=== PATIENT | male | born 1945 | race Caucasian/White ===

== ENCOUNTER 2017-12-03 17:17 | Inpatient (IN) ==
[2017-12-03] MEDS ORDERED: Naloxone 0.4 MG/ML INJ IVP PRN (20:31)
[2017-12-03] MEDS ORDERED: traMADol 50 MG TABLET PO PRN (20:31)
[2017-12-03] MEDS ORDERED: Acetaminophen 325 MG TABLET PO PRN (20:31)
[2017-12-03 22:22] LABS: BUN/Creatinine Ratio 16 (6-26); Blood Urea Nitrogen 9 mg/dL (8-23); Calcium 8.1 mg/dL (8.6-10.3); Carbon Dioxide 24 mEq/L (23-29); Chloride 88 mEq/L (98-107); Glucose 98 mg/dL (70-105); Osmolality,Calculated 245 (280-300); Potassium 3.6 mEq/L (3.5-5.1); Sodium 118 mEq/L (136-145); eGFR For Non-African Americans > 60 (> 60)
--- NOTE | 2017-12-03 23:17 | Internal Med History&Physical ---
Date of Encounter: 12/04/17 Time of Encounter: 19:45 Internal Medicine - H&P: HPI Chief complaint: Near syncope Admitted From: Emergency Dept Plans for Post Hospital Care: Home History of present illness: Mr. Elizondo is a 72 year old male with history of hypertension, [place] status post stents 4 years ago, hip fracture 1 year ago, looking back 3 years ago and recent diagnosis of right lower lobe lung nodule who presented to the ED with 3 day history of near syncopal events. He says that earlier this afternoon he was outside spraying weeds in his yard and he became intensely diaphoretic, lightheaded, nauseated and felt like he was going throughout. He immediately felt that he might pass out, and found that he needed to sit down very quickly. He did not pass out, because he was able to sit down in time, however he did continue to feel increasingly dizzier and had some confusion associated with this. He denies any chest pain associated with at that time and did not have any shortness of breath associated with it either. At that time, EMS was called and when they arrived he apparently had a systolic blood pressure of approximately 80 with a heart rate in the low 40s. He does say that he recovered relatively quickly however. Patient states that this happened to him on Monday as well while he was at work. 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 It did resolve on its own last time. He was brought to the emergency room, at which time he was given a small fluid bolus and his symptoms largely resolved. The patient denies chest pains, shortness of breath, abdominal pain, headache, she will changes, focal weakness, bleeding, melena or hematochezia. He does admit to some nausea and one episode of vomiting on Monday. Significantly upon further questioning regarding medical history, the patient reveals that he is recently been worked up for hyponatremia which has been going on for approximately 3 weeks. He had apparently gone to his primary care physician for what he describes as fatigue over the past 2 months and a 10 pound weight loss over the past 3 weeks. He relates that the 10 pound weight loss is due to a change in taste of food which decreased his appetite after he started lisinopril. The patient has been on hydrochlorothiazide for a significant amount of time for hypertension and recently switched to lisinopril due to hyponatremia which was found on workup in late October, however he says that he switch back to hydrochlorothiazide from lisinopril approximately 3 days ago. In addition of this, the patient did have a CT of his chest which demonstrated a right lower lobe lung nodule which was being worked up in the outpatient setting and he was scheduled to have a PET/CT scan on this coming Monday followed by a consultation with pulmonology. Social history is significant for a 35-61-eeip-year smoking history and he is a current smoker with 3-4 cigarettes per day. He denies any alcohol use, denies illicit drug use. He is and lives at home. Works as a building construction superintendent. The patient and his travel to [place] each year in March and then moved back to [place] and September to avoid the cold weather. Past Med Surg Social Fam HX - Past Medical History Medical history: hypertension, myocardial infarction Psychiatric history: no psych history - Past Surgical History Additional surgical history: LEFT FOOT SX, LEFT HIP FX - Social History Smoking Status: Current some day smoker Packs per day: 1 cig/ day Smokeless Tobacco Status: No Alcohol use: none Drug use: none Internal Medicine - H&P: Meds Aspirin [Lo-Dose Aspirin EC] 162 mg PO DAILY 12/03/17 [History] Flaxseed Oil [[place]-3 Flaxseed Oil] 1 cap PO DAILY 12/03/17 [History] Folic Acid [FA-8] 0.8 mg PO DAILY 12/03/17 [History] Garlic 1,000 mg PO DAILY 12/03/17 [History] [place]-3 Fatty Acids [Fish Oil Concentrate] 1,000 mg PO DAILY 12/03/17 [History] hydroCHLOROthiazide [Hydrochlorothiazide] 25 mg PO DAILY 12/03/17 [History] 3 Allergy/AdvReac Type Severity Reaction Status Date / Time Cmludzt-Rex-Qdo Reductase Allergy See Verified 12/03/17 16:07 Inhibitor Comments [Statins] All Systems PM: A 10-system review of systems was performed and is negative for pertinent findings except as documented above in the HPI. Review of systems: Constitutional: Denies fevers, chills. Admits to generalized fatigue over the past 2-3 months, 10 pound weight loss in 3 weeks Head/Neck: Denies ROBERTS, neck stiffness EENT: Denies vision changes/blurriness, sore throat. Admits to sinus congestion which is chronic CVS: Denies chest pain, palpitations, HERNANDEZ, orthopnea, edema, PND. Admits to marked diaphoresis Pulm: Denies SOB, hemoptysis, wheezing. Admits to increased cough with sputum production GI: Denies abdominal pain, diarrhea, constipation, melena, hematemasis. Admits to nausea and vomiting only during episodes : Denies dysuria, increased frequency, urgency, hematuria. Heme: Denies ease of bleeding or bruising MSK: Denies joint pain, limited ROM Skin: Denies rashes, ulcers, color changes Neuro: Denies ROBERTS, paresthesias, focal deficits, ataxia. Admits to near syncope , dizziness, confusion during about - Constitutional Vitals: Temp Pulse Resp BP Pulse Ox 98.9 F 57 19 147/78 98 12/03/17 18:55 12/03/17 18:55 12/03/17 18:55 12/03/17 18:55 12/03/17 18:55 Exam: Gen: Vitals noted. No acute distress. HEENT: Normocephalic, atraumatic Neck: Supple. No adenopathy. Cardiac: RRR, no murmur, +S1/S2 Pulmonary: CTA bilaterally, no wheezes, rales or rhonchi, equal chest expansion Abdomen: soft, nontender, no guarding Back: Nontender throughout. MSK: ROM intact, no joint swelling noted Extremities: no BLE edema, nontender calf, no cyanosis or clubbing Neuro: moves all extremities, no focal deficits. A&Ox3 Psych: Appropriate mood and behavior Internal Med - H&P Results - Labs CBC & Chem 7: 12/03/17 20:49 Labs: BMP 12/03/17 20:49 Sodium 118 L* Potassium 3.6 Chloride 88 L Carbon Dioxide 24 BUN 9 Creatinine 0.58 L Glucose 98 Calcium 8.1 L - Assessment and plan (1) Hyponatremia Current Visit: Yes Status: Acute Assessment and plan: Severe hyponatremia, asymptomatic. Sodium 117, Serum Osm 247, Urine I suspect that this is SIADH in response to lung nodule found on CT, however diuretic use vs heart failure remains on differential Appears to be chronic, however there may be an acute aspect considering restarting HCTZ 3 days ago He is currently asymptomatic although his near syncope and confusion may have been related earlier The patient does appear to be euvolemic, he has hypoosmolar and does not admit to polydipsia The patient does have a substantial smoking history Plan -Fluid restrict now, hold HCTZ -Normal saline at 125mLs/hr, Na q2h -AM Cortisol -Echo in AM -Consider nephro consult (2) Near syncope Current Visit: Yes Status: Acute Assessment and plan: Near syncope, suspect urinary to volume depletion versus vasovagal response On arrival, EMS noted hypotension with bradycardia This is most commonly seen and vasovagal responses Still I will work this up for possible arrhythmia versus heart failure given other symptoms Plan -Echo in the morning -Bilateral carotid ultrasound -Trend troponins -Continuous cardiac monitoring -Consider cardiology consultation (3) Bradycardia Current Visit: Yes Status: Acute Assessment and plan: Sinus bradycardia No evidence of coronary ischemia Possibly increased vagal tone We will continue to trend troponins Consider cardiology consultation (4) HTN (hypertension) Current Visit: Yes Status: Acute Assessment and plan: Hypertension Previously treated with hydrochlorothiazide and lisinopril The patient has had adverse effects as result of both these medications Hydrochlorothiazide is contraindicated in this patient secondary to his issues with electrolytes at this time Otherwise, the patient has not been able to tolerate lisinopril in the past I will hold both of these medications at this time I will give when necessary hydralazine, and calcium channel araceli if needed Qualifiers: Hypertension type: essential hypertension Qualified Code(s): I10 - Essential (primary) hypertension (5) Lung nodule Current Visit: Yes Status: Acute Assessment and plan: Right lung nodule demonstrated on CT, 1.1cm Patient intended to have PET CT on Monday as outpatient Pulmonology considered outpatient bronchoscopy with biopsy We will consider a pulmonology consult (6) CAD (coronary artery disease) Current Visit: No Status: Chronic Assessment and plan: Coronary artery disease, status post stents approximately 4 years ago Patient is currently not having chest pains, however he did have diaphoresis We will trend troponins Continue aspirin Qualifiers: Coronary Disease-Associated Artery/Lesion type: [place] artery [place] vs. transplanted heart: [place] heart Associated angina: without angina Qualified Code(s): I25.10 - Atherosclerotic heart disease of [place] coronary artery without angina pectoris (7) DVT prophylaxis Current Visit: Yes Status: Acute Assessment and plan: SQ Heparin - Time Spent With Patient Total time spent is greater than 50% in coordination of care (as documented) at patient's floor/unit and/or counseling patient:
[2017-12-04 01:06] LABS: Bilirubin,Urine Negative (Negative); Blood,Urine Negative (Negative); Clarity,Urine Clear (Clear); Color,Urine Yellow (Yellow); Glucose,Urine (UA) Normal (Normal); Ketones,Urine 15 mg/dL (Negative); Leukocyte Esterase,Urine Negative (Negative); Nitrite,Urine Negative (Negative); Protein,Urine Negative (Neg-Trace); Specific Gravity,Urine 1.015 (1.010-1.025); Urobilinogen,Urine Normal (Normal)
[2017-12-04 01:13] LABS: Sodium, Urine 170.2 mEq/L
[2017-12-04] MEDS ORDERED: 0.9 % Sodium Chloride 1,000 ML IVC SCH ×2 (01:30→09:45)
[2017-12-04] MEDS: *HR* Heparin 5,000 UNIT/ML VIAL SQ SCH ×3 (04:44→21:18)
[2017-12-04] MEDS ORDERED: Cosyntropin 250 MCG/2 ML VIAL IVP ONE (07:30)
[2017-12-04] MEDS: Aspirin Enteric Coated 81 MG Tablet PO SCH (08:16)
[2017-12-04] MEDS ORDERED: Folic Acid 1 MG TABLET PO SCH (09:45)
--- NOTE | 2017-12-04 10:00 | Internal Med Progress Note ---
Hospitalist Progress Note - Encounter Date of Encounter: 12/04/17 Time of Encounter: 09:57 - Subjective Interval History: Patient had no acute events overnight. He states that he feels "better" today. He denies fever, chills, dizziness, headache, chest pain, SOB, nausea, vomiting, or abdominal pain. He has no complaints at this time. - Exam Vitals: Temp Pulse Resp BP Pulse Ox 97.9 F 55 18 124/96 95 12/04/17 07:41 12/04/17 08:25 12/04/17 07:41 12/04/17 07:41 12/04/17 08:25 Exam: Gen - Awake, alert, no acute distress HEENT - NCAT, PERRLA, EOMI, hearing grossly intact, oropharynx benign CV - RRR, normal S1 and S2, no M/R/G, no BLE edema Resp - Normal WOB, CTAB, no W/R/R GI - Soft, NT/ND, no masses, normal bowel sounds, no HSP Skin - Warm, dry, no rashes/lesions/ulcers Psych - Normal mood and affect, no depression or anxiety - Assessment and Plan (1) Near syncope Current Visit: Yes Status: Acute Assessment and Plan: Asymptomatic since admission. ECHO and carotid U/S pending. Cardiac enzymes trended negative. Continue telemetry. BP now improved; continue IVF as per below. Consider cardiology consult if needed pending workup. (2) Hyponatremia Current Visit: Yes Status: Acute Assessment and Plan: Nephrology consulted; appreciate input. Start IV NS at 75 ml/hr. Check sodium Q4H. Do not correct more than 8 in 24 hours. Continue to hold HCTZ. Start cardiac/fluid restriction 1.5 L/day diet. Cortisol results pending. Will await further recommendations from nephrology. (3) Hypomagnesemia Current Visit: Yes Status: Acute Assessment and Plan: Repleted yesterday. Recheck magnesium today. (4) Bradycardia Current Visit: Yes Status: Acute Assessment and Plan: Sinus bradycardia. HR slightly improved. Cardiac enzymes trended negative. Continue telemetry. (5) HTN (hypertension) Current Visit: Yes Status: Chronic Assessment and Plan: Holding lisinopril and HCTZ. Continue PRN hydralazine. Consider starting ARB after BP improves. (6) Lung nodule Current Visit: Yes Status: Chronic Assessment and Plan: Spoke with cell geneticist today. Recommend keeping outpatient appointments for PET scan and bronchoscopy. (7) CAD (coronary artery disease) Current Visit: Yes Status: Chronic Assessment and Plan: Cardiac enzymes trended negative. No chest pain. Continue aspirin. Holding lisinopril at this time as per above; consider starting ARB after BP improves. (8) DVT prophylaxis Current Visit: Yes Status: Acute Assessment and Plan: Continue SQ heparin. - Time Spent with Patient Total time spent is greater than 50% in coordination of care (as documented) at patient's floor/unit and/or counseling patient: less than 15 minutes Plan of Care Discussed with: patient (Family, Nurse, Pharmacist) Internal Medicine: Result - Labs CBC & Chem 7: 12/04/17 03:39 Labs: BMP 12/03/17 12/04/17 12/04/17 20:49 01:38 03:39 Sodium 118 L* 117 L* 118 L* Potassium 3.6 Chloride 88 L Carbon Dioxide 24 BUN 9 Creatinine 0.58 L Glucose 98 Calcium 8.1 L Cardiac Enzymes 12/04/17 12/04/17 Range/Units 01:38 08:41 Troponin I < 0.03 < 0.03 (< 0.04) ng/mL Urine 12/03/17 Range/Units 23:42 Urine Color Yellow (Yellow) Urine Clarity Clear (Clear) Urine pH 7.0 (5.0-8.0) pH Units Ur Specific Griffith 1.015 (1.010-1.025) Urine Protein Negative (Neg-Trace) mg/dL Urine Glucose (UA) Normal (Normal) mg/dL Consult Discharge Plan - Plan Referrals: Evan Dominguez MD [Primary Care Provider] - 12/11/17 2:00 pm (5) HTN (hypertension) Qualifiers: Hypertension type: essential hypertension Qualified Code(s): I10 - Essential (primary) hypertension (7) CAD (coronary artery disease) Qualifiers: Coronary Disease-Associated Artery/Lesion type: [place] artery [place] vs. transplanted heart: [place] heart Associated angina: without angina Qualified Code(s): I25.10 - Atherosclerotic heart disease of [place] coronary artery without angina pectoris
[2017-12-04] MEDS: FLAXSEED OIL PO SCH (10:09)
[2017-12-04] MEDS: FATTY ACIDS PO SCH (10:09)
[2017-12-04] MEDS: OMEGA PO SCH (10:09)
[2017-12-04] MEDS: Garlic [Garlic] 1,000 MG PO SCH (10:09)
[2017-12-04] MEDS: Folic Acid 1 MG TABLET PO SCH (10:09)
[2017-12-04 10:29] LABS: Magnesium 2.1 mg/dL (1.6-2.6); Triiodothyronine (T3) Free 2.86 pg/mL (2.50-3.90)
--- NOTE | 2017-12-04 11:31 | Nephrology Consult Note ---
<Jose Quintero - Last Filed: 12/04/17 14:44> Date of Encounter: 12/04/17 Time of Encounter: 11:20 Assessment and Plan (1) Hyponatremia Current Visit: Yes Status: Acute Calculated serum osm = 245, Measured osm = 285. Osmolar gap = 40, significant. Patient does not have an anion gap acidosis. Likely cause of hyponatremia 2/2 to chronic hydrochlorothiazide use. Will discontinue now. Patient had adverse effects with lisinopril, could consider losartan if BP uncontrolled. BP has been stable, reasonable to continue holding BP meds and start medication as needed. Continue Na+ monitor Q4 hours. Other causes of increased osmolar gap includes methanol/ethylene glycol intoxication, mannitol/sorbitol, lipids, or proteins. Will order lipid panel, uric acid. Consider serum ethanol measurements. Patient's BP has increased and is stable. d/c fluids and start fluid restriction and sodium containing diet. Avoid nephrotoxins. Nephrology will continue following. Thank you for the consult. History of Present Illness - Reason for Consult Consult date: 12/04/17 Acute Kidney Injury, hyponatremia Requesting physician: Pravin Atkinson - Chief Complaint Near Syncope - History of Present Illness 72M PMHx HTN, CAD with stent, presents with episode of near syncope. Patient is a contractor and works outdoors often. He reports that he has had 2 episodes of near syncope in the last few weeks, each time occurring when he was working outdoors. Denies head injury or loss of consciousness. Patient's last blood work at [facility] demonstrated hyponatremia of 127 and was instructed to discontinue hydrochlrothiazide and switch to lisinopril. However, since then, patient had trial of lisinopril for 3 days and experienced worsening PO intake due to "everything tasting like salt", and restarted his hydrochlorothiazide himself. He has been on thiazide for 4 years without complications. Today, he reports that he feels "much better". No complaints of dizziness or lightheadedness. Does have some nausea but no vomiting. He was able to void without difficulty. Does not have memory loss, headaches, or vision changes. Denies CP, SOB, abdominal pain. His cooks for him at home with minimal to no salt. He has also had poor PO intake for several weeks. Denies alcohol, methanol, or ethylene glycol consumption. Denies mannitol or sorbital comsumption. Past Med Surg Social Fam HX - Past Medical History Medical history: hypertension, myocardial infarction Psychiatric history: no psych history - Past Surgical History Additional surgical history: LEFT FOOT SX, LEFT HIP FX - Social History Smoking Status: Current some day smoker Packs per day: 1 cig/ day Smokeless Tobacco Status: No Alcohol use: none Drug use: none Medications and Allergies Aspirin [Lo-Dose Aspirin EC] 162 mg PO DAILY 12/03/17 [History] Flaxseed Oil [[place]-3 Flaxseed Oil] 1 cap PO DAILY 12/03/17 [History] Folic Acid [FA-8] 0.8 mg PO DAILY 12/03/17 [History] Garlic 1,000 mg PO DAILY 12/03/17 [History] [place]-3 Fatty Acids [Fish Oil Concentrate] 1,000 mg PO DAILY 12/03/17 [History] Lisinopril [Zestril] 10 mg PO DAILY 12/04/17 [History] 3 Allergy/AdvReac Type Severity Reaction Status Date / Time Qtancts-Zak-Kjo Reductase Allergy See Verified 12/03/17 16:07 Inhibitor Comments [Statins] Review of Systems All Systems: reviewed and no additional remarkable complaints except as stated All Systems review (narrative): Constitutional: Denies fevers, chills. Admits to generalized fatigue over the past 2-3 months, 10 pound weight loss in 3 weeks Head/Neck: Denies ROBERTS, neck stiffness EENT: Denies vision changes/blurriness, sore throat. CVS: Denies chest pain, palpitations, HERNANDEZ, orthopnea, edema, PND. Pulm: Denies SOB, hemoptysis, wheezing. Admits to increased cough with sputum production GI: Denies abdominal pain, diarrhea, constipation, melena, hematemasis. Admits to nausea and vomiting only during episodes : Denies dysuria, increased frequency, urgency, hematuria. Heme: Denies ease of bleeding or bruising MSK: Denies joint pain, limited ROM Skin: Denies rashes, ulcers, color changes Neuro: Denies ROBERTS, paresthesias, focal deficits, ataxia. Admits to near syncope , dizziness, confusion during episodes Exam - Vital Signs Vital signs: Initial Vital Signs Temp Pulse Resp BP Pulse Ox 98.9 F 57 19 147/78 98 12/03/17 18:55 12/03/17 18:55 12/03/17 18:55 12/03/17 18:55 12/03/17 18:55 Vital Signs - Last 8 Hours Temp Pulse Resp BP Pulse Ox 12/04/17 08:25 55 95 12/04/17 07:41 97.9 F 56 18 124/96 96 12/04/17 04:15 98.1 F 56 19 148/65 96 Intake and Output 12/03/17 12/04/17 12/04/17 23:59 07:59 15:59 Intake Total 446 / 446 0 / 0 Output Total 725 / 725 0 / 0 Balance -279 / -279 0 / 0 Intake: IV Fluids 446 / 446 0.9 % Sodium Chloride 1,000 ML 342 / 342 @ 125 mls/hr IVC .Q8H AC Rx#: [id number] Magnesium Sulfate 2 GM In 0.9 % 104 / 104 Sodium Chloride 100 ML @ 104 mls/hr IVPB ONCE ONE Rx#: [id number] Oral 0 / 0 Output: Urine 725 / 725 0 / 0 Other: Meal Breakfast Percent of Meal Consumed 0% Weight 76.6 kg 75.7 kg Blood Glucose* 101 Patient Weight 12/04/17 23:59 Weight 75.7 kg - General Appearance Exam: Gen: Vitals noted. No acute distress. HEENT: Normocephalic, atraumatic Neck: Supple. No adenopathy. Cardiac: RRR, no murmur, +S1/S2 Pulmonary: CTA bilaterally, no wheezes, rales or rhonchi, equal chest expansion Abdomen: soft, nontender, no guarding Back: Nontender throughout. MSK: ROM intact, no joint swelling noted Extremities: no BLE edema, nontender calf, no cyanosis or clubbing Neuro: moves all extremities, no focal deficits. A&Ox3 Psych: Appropriate mood and behavior Results - Lab Results 12/04/17 13:02 Most recent lab results Calcium 8.1 mg/dL (8.6-10.3) L 12/03/17 20:49 Magnesium 2.1 mg/dL (1.6-2.6) 12/04/17 09:10 Urine Creatinine 41 mg/dL 12/03/17 23:42 Urine Sodium 170.2 mEq/L 12/03/17 23:42 Consult Discharge Plan - Plan Referrals: Evan Dominguez MD [Primary Care Provider] - 12/11/17 2:00 pm <Chelsea Sweeney - Last Filed: 12/05/17 09:42> Date of Encounter: 12/04/17 Exam - Vital Signs Vital signs: Initial Vital Signs Temp Pulse Resp BP Pulse Ox 98.9 F 57 19 147/78 98 12/03/17 18:55 12/03/17 18:55 12/03/17 18:55 12/03/17 18:55 12/03/17 18:55 Vital Signs - Last 8 Hours Temp Pulse Resp BP Pulse Ox 12/05/17 07:26 98.2 F 51 18 150/84 93 12/05/17 04:00 97.8 F 59 20 160/73 99 Intake and Output 12/04/17 12/05/17 12/05/17 23:59 07:59 15:59 Intake Total 719 / 719 240 / 240 Output Total 200 / 200 900 / 900 Balance 519 / 519 -900 / -900 240 / 240 Intake: IV Fluids 329 / 329 0.9 % Sodium Chloride 1,000 ML 329 / 329 @ 75 mls/hr IVC .[id number] AC Rx #:[id number] Oral 390 / 390 240 / 240 Output: Urine 200 / 200 900 / 900 Other: Meal Dinner Breakfast Percent of Meal Consumed 80% 50% # Voids 1 Weight 72.8 kg Blood Glucose* 122 Patient Weight 12/05/17 23:59 Weight 72.8 kg Results - Lab Results 12/05/17 05:22 12/05/17 05:22 Most recent lab results Calcium 8.4 mg/dL (8.6-10.3) L 12/05/17 05:22 Magnesium 2.1 mg/dL (1.6-2.6) 12/04/17 09:10 Urine Creatinine 41 mg/dL 12/03/17 23:42 Urine Sodium 170.2 mEq/L 12/03/17 23:42 - Attending Attestation I examined this patient and my medical decision-making was reviewed with the Resident Physician. I agree with the documented findings, disposition and treatment plan as described except to the extent set forth below. Pt seen and examined with PMH of HTN on HCTZ till recent changes admitted with generalized fatigue and noted with sodium of 117. Last month sodium was noted low for the first time at 125 with HCTZ changed to lisinopril however pt switched back as lisinopril did not control his BP readings.Pt reports all day work outside the day prior to admission with BP readings down to 80/40s on presentation. Of note, pt is also being worked up for a 1.1cm pulm nodule discovered on recent CT chest given smoking history. Exam shows well nourished elderly male with no signs of edema. Etiology of acute on chronic mildly symptomatic hyponatremia appears to be initial volume depletion with hypotension now volume resuscitated but likley underlying SIADH as well given high urine osmolality and urine sodium level. Of note, measured serum osm noted at 245 and calculated 247 hence no osmolal gap noted. Will stop IVF and start fluid restriction. Will add more sodium to diet as well as salt tabs. Will check uric acid level as well. Continue sreial sodium checks in the meantime. Hypertonic saline not required at this time but will consider tolvaptan if no measurable improvement in the next 24 to 48hrs.
[2017-12-04 13:50] LABS: Chol/HDL Ratio 2.9 (0-4.9); Cholesterol 174 mg/dL (< 200); HDL Cholesterol 60 mg/dL (40-59); LDL Cholesterol,Calculated 94 mg/dL (0-99); Sodium 118 mEq/L (136-145); Triglycerides 100 mg/dL (< 150); Uric Acid < 1.5 mg/dL (2.3-7.6)
[2017-12-05 05:59] LABS: BUN/Creatinine Ratio 16 (6-26); Blood Urea Nitrogen 9 mg/dL (8-23); Calcium 8.4 mg/dL (8.6-10.3); Carbon Dioxide 25 mEq/L (23-29); Chloride 88 mEq/L (98-107); Glucose 97 mg/dL (70-105); Osmolality,Calculated 247 (280-300); Potassium 3.2 mEq/L (3.5-5.1); Sodium 119 mEq/L (136-145); eGFR For Non-African Americans > 60 (> 60)
[2017-12-05 06:17] LABS: Basophils % 0.6 %; Eosinophils # 0.2 K/mcL (0.0-0.6); Eosinophils % 3.5 %; Hemoglobin 12.5 g/dL (12.9-16.9); Immature Granulocytes % 0.2 % (0-4); Lymphocytes # 1.8 K/mcL (0.6-4.6); Mean Corpuscular HGB Conc 36.8 g/dL (31.6-35.5); Mean Corpuscular Hemoglobin 31.5 pg (28.0-33.3); Mean Corpuscular Volume 85.6 fL (83.0-100.0); Mean Platelet Volume 9.4 fL (9.4-12.4); Monocytes # 0.7 K/mcL (0.0-1.3); Monocytes % 11.2 %; Neutrophils # 3.7 K/mcL (1.6-8.9); Platelet Count 219 K/mcL (140-400); Red Blood Count 3.97 M/mcL (4.19-5.50); Red Cell Distribution Width 11.3 % (11.5-14.5); Segmented Neutrophils % 56.5 %
[2017-12-05] MEDS: FLAXSEED OIL PO SCH (08:23)
[2017-12-05] MEDS: FATTY ACIDS PO SCH (08:23)
[2017-12-05] MEDS: OMEGA PO SCH (08:23)
[2017-12-05] MEDS: Garlic [Garlic] 1,000 MG PO SCH (08:23)
[2017-12-05] MEDS: Folic Acid 1 MG TABLET PO SCH (08:24)
[2017-12-05] MEDS: Aspirin Enteric Coated 81 MG Tablet PO SCH (08:24)
[2017-12-05] MEDS: *HR* Heparin 5,000 UNIT/ML VIAL SQ SCH ×2 (08:24→15:42)
[2017-12-05 12:09] LABS: BUN/Creatinine Ratio 13 (6-26); Blood Urea Nitrogen 9 mg/dL (8-23); Calcium 8.9 mg/dL (8.6-10.3); Carbon Dioxide 26 mEq/L (23-29); Chloride 87 mEq/L (98-107); Glucose 116 mg/dL (70-105); Osmolality,Calculated 250 (280-300); Potassium 3.3 mEq/L (3.5-5.1); Sodium 120 mEq/L (136-145); eGFR For Non-African Americans > 60 (> 60)
--- NOTE | 2017-12-05 12:26 | Nephrology Progress Note ---
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 Per nurse, losartan started by primary team this am. Objective - Vital Signs Vital signs: Vital Signs Temp Pulse Resp BP Pulse Ox 12/05/17 11:41 98.8 F 51 18 125/73 96 12/05/17 07:26 98.2 F 51 18 150/84 93 12/05/17 04:00 97.8 F 59 20 160/73 99 12/05/17 00:09 97.8 F 56 17 142/60 96 12/04/17 18:57 98.1 F 54 18 141/69 96 12/04/17 15:57 52 12/04/17 15:28 98.3 F 56 18 136/73 96 12/04/17 12:30 71 Intake and Output 12/04/17 12/05/17 12/05/17 23:59 07:59 15:59 Intake Total 719 / 719 240 / 240 Output Total 200 / 200 900 / 900 Balance 519 / 519 -900 / -900 240 / 240 Intake: IV Fluids 329 / 329 0.9 % Sodium Chloride 1,000 ML 329 / 329 @ 75 mls/hr IVC .[id number] AC Rx #:[id number] Oral 390 / 390 240 / 240 Output: Urine 200 / 200 900 / 900 Other: Meal Dinner Breakfast Percent of Meal Consumed 80% 50% # Voids 1 Weight 72.8 kg Blood Glucose* 122 Patient Weight 12/05/17 23:59 Weight 72.8 kg - General Appearance General appearance: Present: well-developed, well-nourished EENT: Present: ATNC, mucous membranes moist Neck: Present: no JVD, supple Respiratory: Present: clear Cardiology: Present: no edema, normal S1, normal S2 Gastrointestinal: Present: no tenderness, no guarding Integumentary: Present: warm and dry Neurologic: Present: no focal deficit Musculoskeletal: Present: no deformities Psychiatric: Present: mood/affect appropriate, cooperative - Lab 12/05/17 05:22 12/05/17 11:24 Most recent lab results Calcium 8.9 mg/dL (8.6-10.3) 12/05/17 11:24 Magnesium 2.1 mg/dL (1.6-2.6) 12/04/17 09:10 Urine Creatinine 41 mg/dL 12/03/17 23:42 Urine Sodium 170.2 mEq/L 12/03/17 23:42 - VTE Documentation of Mechanical Device: Intermittent pneumatic compression device Consult Discharge Plan - Plan Referrals: Evan Dominguez MD [Primary Care Provider] - 12/11/17 2:00 pm
[2017-12-05 17:26] LABS: BUN/Creatinine Ratio 16 (6-26); Blood Urea Nitrogen 10 mg/dL (8-23); Carbon Dioxide 26 mEq/L (23-29); Chloride 89 mEq/L (98-107); Glucose 100 mg/dL (70-105); Osmolality,Calculated 249 (280-300); Potassium 4.1 mEq/L (3.5-5.1); Sodium 120 mEq/L (136-145); eGFR For Non-African Americans > 60 (> 60)
--- NOTE | 2017-12-05 18:40 | Internal Med Progress Note ---
Hospitalist Progress Note - Encounter Date of Encounter: 12/05/17 Time of Encounter: 11:00 - Subjective Interval History: Patient is alert and oriented this morning and sodium slowly correcting. Patient's blood pressure is elevated so will be started on blood pressure medication this morning. - Exam Vitals: Temp Pulse Resp BP Pulse Ox 98.9 F 54 18 156/78 97 12/05/17 16:17 12/05/17 16:17 12/05/17 16:17 12/05/17 16:17 12/05/17 16:17 Exam: Gen.: Nonacute distress, alert and oriented 3 ENT: Mucosal membranes moist Respiratory: Lungs are clear to auscultation bilaterally without any wheezing rhonchi or rales Cardiovascular: Normal S1 and S2 regular rate rhythm no murmurs rubs or gallops Abdomen: Soft, nontender and nondistended with positive bowel sounds Extremities: No lower extremity edema Skin: Normal color - Assessment and Plan (1) Hyponatremia Current Visit: Yes Status: Acute Assessment and Plan: Nephrology consulted with recommendations to discontinue normal saline and salt tablets was started this morning. SrNa 118->118->120 Will continue to monitor (2) Hypokalemia Current Visit: Yes Status: Acute Assessment and Plan: Potassium was 3.2 earlier this morning but after replacements is currently 4.1 Continue to monitor (3) Near syncope Current Visit: Yes Status: Acute Assessment and Plan: Asymptomatic since admission. ECHO and carotid U/S negative. Continue telemetry. (4) HTN (hypertension) Current Visit: Yes Status: Chronic Assessment and Plan: Patient with continued elevated blood pressures. Holding lisinopril and HCTZ. Will start losartan due to elevated blood pressures. (5) Lung nodule Current Visit: Yes Status: Chronic Assessment and Plan: Patient to keep outpatient appointments for PET scan and bronchoscopy. (6) CAD (coronary artery disease) Current Visit: Yes Status: Chronic Assessment and Plan: Continue aspirin. Starting ARB as above. (7) Bradycardia Current Visit: Yes Status: Acute Assessment and Plan: Sinus bradycardia; heart rate consistently in the 50s Continue to monitor on telemetry (8) DVT prophylaxis Current Visit: Yes Status: Acute Assessment and Plan: Continue SQ heparin. - Time Spent with Patient Total time spent is greater than 50% in coordination of care (as documented) at patient's floor/unit and/or counseling patient: Internal Medicine: Result - Labs CBC & Chem 7: 12/05/17 05:22 12/05/17 16:44 Labs: Short CBC 12/05/17 Range/Units 05:22 WBC 6.5 (4.3-11.1) K/mcL Hgb 12.5 L (12.9-16.9) g/dL Hct 34.0 L (37.5-50.1) % Plt Count 219 (140-400) K/mcL Neutrophils # 3.7 (1.6-8.9) K/mcL BMP 12/04/17 12/05/17 12/05/17 21:09 01:40 05:22 Sodium 118 L* 118 L* 119 L* Potassium 3.2 L Chloride 88 L Carbon Dioxide 25 BUN 9 Creatinine 0.56 L Glucose 97 Calcium 8.4 L 12/05/17 12/05/17 11:24 16:44 Sodium 120 L* 120 L* Potassium 3.3 L 4.1 Chloride 87 L 89 L Carbon Dioxide 26 26 BUN 9 10 Creatinine 0.68 L 0.64 L Glucose 116 H 100 Calcium 8.9 9.0 - VTE Documentation of Mechanical Device: Intermittent pneumatic compression device Consult Discharge Plan - Plan Referrals: Evan Dominguez MD [Primary Care Provider] - 12/11/17 2:00 pm (4) HTN (hypertension) Qualifiers: Hypertension type: essential hypertension Qualified Code(s): I10 - Essential (primary) hypertension (6) CAD (coronary artery disease) Qualifiers: Coronary Disease-Associated Artery/Lesion type: [place] artery [place] vs. transplanted heart: [place] heart Associated angina: without angina Qualified Code(s): I25.10 - Atherosclerotic heart disease of [place] coronary artery without angina pectoris
[2017-12-05 23:27] LABS: BUN/Creatinine Ratio 17 (6-26); Blood Urea Nitrogen 9 mg/dL (8-23); Calcium 8.7 mg/dL (8.6-10.3); Carbon Dioxide 24 mEq/L (23-29); Chloride 90 mEq/L (98-107); Glucose 95 mg/dL (70-105); Osmolality,Calculated 248 (280-300); Potassium 3.5 mEq/L (3.5-5.1); Sodium 120 mEq/L (136-145); eGFR For Non-African Americans > 60 (> 60)
[2017-12-06] MEDS: *HR* Heparin 5,000 UNIT/ML VIAL SQ SCH ×4 (05:15→20:46)
[2017-12-06 05:56] LABS: BUN/Creatinine Ratio 15 (6-26); Blood Urea Nitrogen 8 mg/dL (8-23); Calcium 8.7 mg/dL (8.6-10.3); Carbon Dioxide 23 mEq/L (23-29); Chloride 91 mEq/L (98-107); Glucose 100 mg/dL (70-105); Osmolality,Calculated 250 (280-300); Potassium 3.6 mEq/L (3.5-5.1); Sodium 121 mEq/L (136-145); eGFR For Non-African Americans > 60 (> 60)
[2017-12-06] MEDS: Aspirin Enteric Coated 81 MG Tablet PO SCH (08:26)
[2017-12-06] MEDS: Folic Acid 1 MG TABLET PO SCH (08:26)
--- NOTE | 2017-12-06 09:19 | Nephrology Progress Note ---
<Jose Quintero - Last Filed: 12/06/17 11:03> Date of Encounter: 12/06/17 Time of Encounter: 09:00 - Assessment and Plan (1) Hyponatremia Status: Acute Sodium noted at 121 this AM despite fluid restriction and salt tabs Uric acid noted very low, which is consistent with SIADH picture Trial of one dose Tolvaptan 15mg PO now. continue salt tabs, fluid restriction, and serial sodium checks today Continue liberalized sodium in diet Patient is on losartan for BP. Continue to hold hydrochlorothiazide indefinitely (2) Near syncope Current Visit: Yes Status: Acute (3) Lung nodule Current Visit: Yes Status: Chronic Possible SIADH. Will follow up with pulmonology for PET scan once patient stabilizes. (4) HTN (hypertension) Current Visit: Yes Status: Chronic Continue with Losartan. Qualifiers: Hypertension type: essential hypertension Qualified Code(s): I10 - Essential (primary) hypertension Subjective Principal diagnosis: hyponatremia Interval history: Patient is doing well today. He is voiding without difficulty. Denies blurry vision, confusion, headaches, nausea, vomiting, diarrhea, CP, SOB. He does not have any acute complaints. Objective - Vital Signs Vital signs: Vital Signs Temp Pulse Resp BP Pulse Ox 12/06/17 08:19 53 97 12/06/17 06:54 97.6 F 75 16 144/71 97 12/06/17 03:33 97.8 F 58 17 153/78 100 12/05/17 23:42 97.6 F 56 18 157/71 97 12/05/17 19:01 97.9 F 54 19 172/79 12/05/17 16:17 98.9 F 54 18 156/78 97 12/05/17 11:41 98.8 F 51 18 125/73 96 Intake and Output 12/05/17 12/06/17 12/06/17 23:59 07:59 15:59 Intake Total 360 / 360 240 / 240 Output Total 700 / 700 0 / 0 Balance -340 / -340 240 / 240 Intake: Oral 360 / 360 240 / 240 Output: Urine 700 / 700 0 / 0 Other: Meal Dinner Breakfast Percent of Meal Consumed 50% 25% Weight 71.9 kg Patient Weight 12/06/17 23:59 Weight 71.9 kg - General Appearance Exam: Gen.: Nonacute distress, alert and oriented 3 ENT: Mucosal membranes dry Respiratory: Lungs are clear to auscultation bilaterally without any wheezing rhonchi or rales Cardiovascular: Normal S1 and S2 regular rate rhythm no murmurs rubs or gallops Abdomen: Soft, nontender and nondistended with positive bowel sounds Extremities: No lower extremity edema Skin: Normal color - Lab 12/05/17 05:22 12/06/17 05:11 Most recent lab results Calcium 8.7 mg/dL (8.6-10.3) 12/06/17 05:11 Magnesium 2.1 mg/dL (1.6-2.6) 12/04/17 09:10 Urine Creatinine 41 mg/dL 12/03/17 23:42 Urine Sodium 170.2 mEq/L 12/03/17 23:42 - VTE Documentation of Mechanical Device: Intermittent pneumatic compression device Consult Discharge Plan - Plan Instructions: Losartan (By mouth), Sodium Chloride (By mouth), Dehydration (DC) , Hyponatremia (DC), Chronic Hypertension (DC) Referrals: Clary Vaz MD [Partnered Physician] - 12/14/17 10:30 am (Please arrive 15 minutes early for your appointment. Take with you INS.cards, Photo ID, a list of all medications including over the counter) Chelsea Sweeney MD [Partnered Physician] - 01/02/18 11:00 am Evan Dominguez MD [Primary Care Provider] - 12/11/17 2:00 pm Prescriptions: Losartan [Cozaar] 50 mg PO DAILY #60 tablet Sodium Chloride [Sodium Chloride Tab] 1 gm PO BID #60 tablet <Chelsea Sweeney - Last Filed: 12/15/17 12:38> Date of Encounter: 12/06/17 - Assessment and Plan (1) Hyponatremia Status: Acute (2) Near syncope Status: Acute (3) Lung nodule Status: Chronic (4) HTN (hypertension) Status: Chronic Qualifiers: Hypertension type: essential hypertension Qualified Code(s): I10 - Essential (primary) hypertension Objective - Lab 12/05/17 05:22 12/07/17 04:22 Most recent lab results Calcium 9.3 mg/dL (8.6-10.3) 12/07/17 04:22 Magnesium 2.1 mg/dL (1.6-2.6) 12/04/17 09:10 Urine Creatinine 41 mg/dL 12/03/17 23:42 Urine Sodium 170.2 mEq/L 12/03/17 23:42 - Attending Attestation I examined this patient and my medical decision-making was reviewed with the Resident Physician/[employer]. I agree with the documented findings, disposition and treatment plan as described except to the extent set forth below. Pt seen and examined with no complaints. Sodium noted at 121 on salt tabs and fluid restriction. Exam unremarkable. Will add tolavaptan 15mg once today.
[2017-12-06] MEDS ORDERED: Tolvaptan 15 MG TABLET PO ONE (09:41)
[2017-12-06 11:44] LABS: BUN/Creatinine Ratio 16 (6-26); Blood Urea Nitrogen 10 mg/dL (8-23); Calcium 9.2 mg/dL (8.6-10.3); Carbon Dioxide 26 mEq/L (23-29); Chloride 90 mEq/L (98-107); Glucose 111 mg/dL (70-105); Osmolality,Calculated 254 (280-300); Sodium 122 mEq/L (136-145); eGFR For Non-African Americans > 60 (> 60)
[2017-12-06 17:09] LABS: BUN/Creatinine Ratio 12 (6-26); Blood Urea Nitrogen 9 mg/dL (8-23); Calcium 9.5 mg/dL (8.6-10.3); Carbon Dioxide 28 mEq/L (23-29); Chloride 98 mEq/L (98-107); Glucose 104 mg/dL (70-105); Osmolality,Calculated 255 (280-300); Sodium 123 mEq/L (136-145); eGFR For Non-African Americans > 60 (> 60)
--- NOTE | 2017-12-06 18:54 | Internal Med Progress Note ---
Hospitalist Progress Note - Encounter Date of Encounter: 12/06/17 Time of Encounter: 11:00 - Subjective Interval History: Patient is alert and oriented and sodium continues to correct slowly - Exam Vitals: Temp Pulse Resp BP Pulse Ox 97.5 F L 57 16 146/73 98 12/06/17 16:51 12/06/17 18:35 12/06/17 16:51 12/06/17 18:35 12/06/17 16:51 Exam: Gen.: Nonacute distress, alert and oriented 3 ENT: Mucosal membranes moist Respiratory: Lungs are clear to auscultation bilaterally without any wheezing rhonchi or rales Cardiovascular: Normal S1 and S2 regular rate rhythm no murmurs rubs or gallops Abdomen: Soft, nontender and nondistended with positive bowel sounds Extremities: No lower extremity edema Skin: Normal color - Assessment and Plan (1) Hyponatremia Current Visit: Yes Status: Acute Assessment and Plan: Nephrology consulted with recommendations to start her out dose of Tolvaptan and continue salt tablets . SrNa 118->118->120->121->121->123 Will continue to monitor (2) Hypokalemia Current Visit: Yes Status: Acute Assessment and Plan: Potassium was 3.2 earlier this morning but after replacements is currently 4.1 Continue to monitor (3) Near syncope Current Visit: Yes Status: Acute Assessment and Plan: Asymptomatic since admission. ECHO and carotid U/S negative. Continue telemetry. (4) HTN (hypertension) Current Visit: Yes Status: Chronic Assessment and Plan: Patient with continued elevated blood pressures. Holding lisinopril and HCTZ. Will start losartan due to elevated blood pressures. (5) Lung nodule Current Visit: Yes Status: Chronic Assessment and Plan: Patient to keep outpatient appointments for PET scan and bronchoscopy. (6) CAD (coronary artery disease) Current Visit: Yes Status: Chronic Assessment and Plan: Continue aspirin. Starting ARB as above. (7) Bradycardia Current Visit: Yes Status: Acute Assessment and Plan: Sinus bradycardia; heart rate consistently in the 50s Continue to monitor on telemetry (8) DVT prophylaxis Current Visit: Yes Status: Acute Assessment and Plan: Continue SQ heparin. - Time Spent with Patient Total time spent is greater than 50% in coordination of care (as documented) at patient's floor/unit and/or counseling patient: Internal Medicine: Result - Labs CBC & Chem 7: 12/05/17 05:22 12/06/17 16:37 Labs: BMP 12/05/17 12/06/17 12/06/17 22:42 05:11 11:05 Sodium 120 L* 121 L 122 L Potassium 3.5 3.6 4.0 Chloride 90 L 91 L 90 L Carbon Dioxide 24 23 26 BUN 9 8 10 Creatinine 0.53 L 0.52 L 0.63 L Glucose 95 100 111 H Calcium 8.7 8.7 9.2 12/06/17 16:37 Sodium 123 L Potassium 4.0 Chloride 98 Carbon Dioxide 28 BUN 9 Creatinine 0.74 Glucose 104 Calcium 9.5 - VTE Documentation of Mechanical Device: Intermittent pneumatic compression device Consult Discharge Plan - Plan Referrals: Evan Dominguez MD [Primary Care Provider] - 12/11/17 2:00 pm (4) HTN (hypertension) Qualifiers: Hypertension type: essential hypertension Qualified Code(s): I10 - Essential (primary) hypertension (6) CAD (coronary artery disease) Qualifiers: Coronary Disease-Associated Artery/Lesion type: [place] artery [place] vs. transplanted heart: [place] heart Associated angina: without angina Qualified Code(s): I25.10 - Atherosclerotic heart disease of [place] coronary artery without angina pectoris
[2017-12-07 05:38] LABS: BUN/Creatinine Ratio 12 (6-26); Blood Urea Nitrogen 8 mg/dL (8-23); Calcium 9.3 mg/dL (8.6-10.3); Carbon Dioxide 24 mEq/L (23-29); Chloride 101 mEq/L (98-107); Glucose 101 mg/dL (70-105); Osmolality,Calculated 272 (280-300); Sodium 132 mEq/L (136-145); eGFR For Non-African Americans > 60 (> 60)
[2017-12-07] MEDS: Aspirin Enteric Coated 81 MG Tablet PO SCH (07:48)
[2017-12-07] MEDS: Folic Acid 1 MG TABLET PO SCH (07:48)
[2017-12-07] MEDS: *HR* Heparin 5,000 UNIT/ML VIAL SQ SCH (07:49)
--- NOTE | 2017-12-07 11:10 | Nephrology Progress Note ---
<Jose Quintero - Last Filed: 12/07/17 19:05> Date of Encounter: 12/07/17 Time of Encounter: 11:00 - Assessment and Plan (1) Hyponatremia Status: Acute serum sodium has improved from 121 to 132 in the last 11 hours with 1 dose tolvaptan 15mg PO yesterday morning. This is marginally more elevated that preferred but patient is doing well and asymptomatic. We would prefer to keep patient here for one more day to assure he stays asymptomatic and recheck his sodium tomorrow morning, but patient is adamant on being discharged today. His serum sodium has improved and close to baseline. He is also asymptomatic. Will discharge today at patient's request. He understands the risks of untreated hyponatremia. He is advised to present to ED immediately if he experiences severe headaches, dizziness, or confusion. He is also advised to continue with fluid restriction of 1.5L daily and sodium tablets diet. We will also hold hydrochlorothiazide indefinitely. Dispo: Patient is to have his BMP rechecked 1 week after discharge and follow-up with nephrology in 2 weeks. His clinical picture is suggestive of SIADH, likely source from pulmonary nodule. He also has follow-up with pulmonology for PET scan. Script for BMP for 12/14/17 was provided for him. (2) Near syncope Current Visit: Yes Status: Acute (3) Lung nodule Current Visit: Yes Status: Chronic Patient's picture consistent with SIADH. Will follow up with pulmonology for PET scan once patient stabilizes. (4) HTN (hypertension) Current Visit: Yes Status: Chronic Continue with Losartan as needed. Treat per primary team Subjective Principal diagnosis: hyponatremia Interval history: Patient is doing well today. He is voiding without difficulty. Denies blurry vision, confusion, headaches, nausea, vomiting, diarrhea, CP, SOB. He does not have any acute complaints. He is adamant on being discharged today. Objective - Vital Signs Vital signs: Vital Signs Temp Pulse Resp BP Pulse Ox 12/07/17 07:50 97.7 F 61 18 139/80 96 12/07/17 07:12 97.7 F 61 18 139/80 96 12/07/17 04:41 98.2 F 53 18 158/80 95 12/06/17 23:18 98.5 F 52 20 145/67 96 12/06/17 19:29 97.9 F 58 17 152/74 99 12/06/17 18:35 57 146/73 12/06/17 16:51 97.5 F L 50 16 163/70 98 12/06/17 15:48 47 12/06/17 12:34 58 12/06/17 11:07 98.1 F 59 16 140/75 96 Intake and Output 12/06/17 12/07/17 12/07/17 23:59 07:59 15:59 Intake Total 940 / 940 300 / 300 Output Total 1425 / 1425 500 / 500 Balance -485 / -485 -200 / -200 Intake: Oral 940 / 940 300 / 300 Output: Urine 1425 / 1425 500 / 500 Other: Meal Dinner Percent of Meal Consumed 30% Weight 69.6 kg Patient Weight 12/07/17 23:59 Weight 69.6 kg - General Appearance General appearance: Present: well-developed, well-nourished, appears started age Exam: Gen.: Nonacute distress, alert and oriented 3 ENT: Mucosal membranes dry Respiratory: Lungs are clear to auscultation bilaterally without any wheezing rhonchi or rales Cardiovascular: Normal S1 and S2 regular rate rhythm no murmurs rubs or gallops Abdomen: Soft, nontender and nondistended with positive bowel sounds Extremities: No lower extremity edema Skin: Normal color Neck: Present: no JVD, no thyromegaly, no carotid bruit, supple Respiratory: Present: no kyphosis, no scoliosis Cardiology: Present: no murmurs, no rub, no gallops, no edema, regular rate, regular rhythm, normal S1, normal S2 Gastrointestinal: Present: normoactive bowel sounds, no tenderness Integumentary: Present: no rash, warm and dry Neurologic: Present: no focal deficit, no asterixis, alert and oriented x3, reflexes 2+ and symmetric, gait normal, strength 5/5 Musculoskeletal: Present: no deformities, no erythema, no cyanosis, no clubbing Psychiatric: Present: mood/affect appropriate, cooperative - Lab 12/05/17 05:22 12/07/17 04:22 Most recent lab results Calcium 9.3 mg/dL (8.6-10.3) 12/07/17 04:22 Magnesium 2.1 mg/dL (1.6-2.6) 12/04/17 09:10 Urine Creatinine 41 mg/dL 12/03/17 23:42 Urine Sodium 170.2 mEq/L 12/03/17 23:42 - VTE Documentation of Mechanical Device: Intermittent pneumatic compression device Consult Discharge Plan - Plan Instructions: Losartan (By mouth), Sodium Chloride (By mouth), Dehydration (DC) , Hyponatremia (DC), Chronic Hypertension (DC) Referrals: Clary Vaz MD [Partnered Physician] - 12/14/17 10:30 am (Please arrive 15 minutes early for your appointment. Take with you INS.cards, Photo ID, a list of all medications including over the counter) Chelsea Sweeney MD [Partnered Physician] - 01/02/18 11:00 am Evan Dominguez MD [Primary Care Provider] - 12/11/17 2:00 pm Prescriptions: Losartan [Cozaar] 50 mg PO DAILY #60 tablet Sodium Chloride [Sodium Chloride Tab] 1 gm PO BID #60 tablet <Chelsea Sweeney - Last Filed: 12/24/17 21:13> Date of Encounter: 12/07/17 - Assessment and Plan (1) Hyponatremia Status: Acute (2) Near syncope Status: Acute (3) Lung nodule Status: Chronic (4) HTN (hypertension) Status: Chronic Qualifiers: Hypertension type: essential hypertension Qualified Code(s): I10 - Essential (primary) hypertension Objective - Lab 12/05/17 05:22 12/07/17 04:22 Most recent lab results Calcium 9.3 mg/dL (8.6-10.3) 12/07/17 04:22 Magnesium 2.1 mg/dL (1.6-2.6) 12/04/17 09:10 Urine Creatinine 41 mg/dL 12/03/17 23:42 Urine Sodium 170.2 mEq/L 12/03/17 23:42 - Attending Attestation I examined this patient and my medical decision-making was reviewed with the Resident Physician/FERMENTOLOGIST. I agree with the documented findings, disposition and treatment plan as described except to the extent set forth below. Pt seen and examined with no new complaints. He is eager to go home. Exam unchanged from previous. Sodium responded greatly a single low dose tolvaptan with improvement from 121 to 132 slightly more than desired but asymptomatic. 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 Needs further workup of this. Continue fluid restriction and increased sodium in diet. If discharged as pt desires, will need BMP within a week and followup with pcp, possibly pulm and nephrology.
[2017-12-07 11:25] VITALS: BP 145/73
--- NOTE | 2017-12-07 13:21 | Discharge Summary ---
- NOTES TO OUTPATIENT PROVIDER Notes to Outpatient Provider: Follow up with pulmonology to monitor lung nodule and with nephrology to monitor sodium levels Date of Encounter: 12/07/17 Time of Encounter: 11:00 - Discharge Diagnosis (1) Hyponatremia Priority: Primary Status: Acute (2) Hypokalemia Priority: Secondary Status: Acute (3) Near syncope Priority: Primary Status: Acute (4) HTN (hypertension) Priority: Secondary Status: Chronic Qualifiers: Hypertension type: essential hypertension Qualified Code(s): I10 - Essential (primary) hypertension (5) Lung nodule Priority: Secondary Status: Chronic (6) CAD (coronary artery disease) Priority: Secondary Status: Chronic Qualifiers: Coronary Disease-Associated Artery/Lesion type: [place] artery [place] vs. transplanted heart: [place] heart Associated angina: without angina Qualified Code(s): I25.10 - Atherosclerotic heart disease of [place] coronary artery without angina pectoris (7) Bradycardia Priority: Secondary Status: Acute Hospital course: Patient is a 72-year-old male with past medical history significant for coronary arterial disease status post stents, hypertension and a smoker who presents to the ER on 12/04/17 due to near syncopal episode. Patient outside and is discharged brain weeks and became diaphoretic lightheaded and nauseated and felt like he was going to pass out. Patient quickly sat down however and never passed out. Patient was brought to the ER for further evaluation. The ER, patient was found to be hyponatremic also with sinus bradycardia so was admitted to the medical surgical floor for management of hyponatremia. The patients hospital stay, nephrology was consulted with recommendations to discontinue normal saline and start patient on salt tablets. Patient was also given a dose of Tolvaptan which corrected patients hyponatremia. Recommendations by nephrology to discontinue hydrochlorothiazide. Patients blood pressure was also controlled with losartan and will be discharged to follow-up with nephrology and pulmonology as an outpatient for monitoring of lung nodule and sodium levels. - Time Spent with Patient Total time spent providing and/or coordinating discharge services: - Discharge Medications Prescriptions: Losartan [Cozaar] 50 mg PO DAILY #60 tablet Sodium Chloride [Sodium Chloride Tab] 1 gm PO BID #60 tablet Home Medications: Aspirin [Lo-Dose Aspirin EC] 162 mg PO DAILY 12/03/17 [History] Flaxseed Oil [Horton-3 Flaxseed Oil] 1 cap PO DAILY 12/03/17 [History] Folic Acid [FA-8] 0.8 mg PO DAILY 12/03/17 [History] Garlic 1,000 mg PO DAILY 12/03/17 [History] Horton-3 Fatty Acids [Fish Oil Concentrate] 1,000 mg PO DAILY 12/03/17 [History] Losartan [Cozaar] 50 mg PO DAILY #60 tablet 12/07/17 [Rx] Sodium Chloride [Sodium Chloride Tab] 1 gm PO BID #60 tablet 12/07/17 [Rx] Allergies/Adverse Reactions: 3 Allergy/AdvReac Type Severity Reaction Status Date / Time Teazzgh-Wav-Pyk Reductase Allergy See Verified 12/03/17 16:07 Inhibitor Comments [Statins] Date of admission: 12/04/17 11:10 Primary care physician: Evan Dominguez MD Consults: 12/03/17 18:57 Consult to Nutrition [CONS] Routine Comment: Consulting Provider: NUTRITION Reason for Dietary Consult: Diet Education 12/04/17 09:34 Consult to Nephrology [CONS] Routine Consulting Provider: Kidney Jaimie/DAGO/WERO/CHRISTOPHER Reason for Consult: Hyponatremia Time Notified: 09:35 Call Completed: Yes - Constitutional Vitals: Temp Pulse Resp BP Pulse Ox 97.5 F L 62 18 145/73 99 12/07/17 11:23 12/07/17 11:23 12/07/17 11:23 12/07/17 11:23 12/07/17 11:23 - Patient Status Disposition: Home, Self-Care - Discharge Instructions Instructions: Losartan (By mouth), Sodium Chloride (By mouth), Dehydration (DC) , Hyponatremia (DC), Chronic Hypertension (DC) Follow Up With: Clary Vaz MD [Partnered Physician] - 12/14/17 10:30 am (Please arrive 15 minutes early for your appointment. Take with you INS.cards, Photo ID, a list of all medications including over the counter) Chelsea Sweeney MD [Partnered Physician] - 01/02/18 11:00 am Evan Dominguez MD [Primary Care Provider] - 12/11/17 2:00 pm - VTE Documentation of Mechanical Device: Intermittent pneumatic compression device
== END 2017-12-07 14:12 | disposition home or self-care (01) | DRG 645 ==
LOC: 2NNU → SUATTDRO 12-04 11:10
PROVIDERS: ADMIT Family Medicine; ATTEND Hospitalist

== ENCOUNTER 2018-10-10 09:25 | Inpatient (IN) ==
--- NOTE | 2018-10-10 15:57 | Internal Med History&Physical ---
Date of Encounter: 10/10/18 Time of Encounter: 15:57 Internal Medicine - H&P: HPI History of present illness: Mr. Elizondo is a 73 year old male with history of lung cancer with mets on chemotherapy, CAD presents as a transfer from [facility] due to weakness. Patient initially came to [place] ER at the request of his doctor when he was not able to get out of bed. He has had poor appetite for past several months with nausea and some diarrhea. He is on immunotherapy for lung cancer and treatment has been postponed because of these symptoms. Denies fevers, SOB, CP, palpitations, change in vision. Due to his debility he was monitored at [place] and treated for dehydration, hyponatremia, and weakness. He was given IV fluids, prior to transfer listed as +3.5 L total of fluid from all sources. 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 Sodium went from 132 on admission and gradually to 124 prior to arrival here. TSH was low and Free T4 was high but likely from immunotherapy, and hyperthyroidism was not significant enough to initiate treatment. He had some imaging done showing liver with expanding mets, mesenteric lymphadenoapthy. A CT of chest showed worsening mets and pneumonia. He was started on Levaquin and blood cultures were obtained. He was transferred here for Oncology evaluation. Oncology is aware of patient transfer. Family history reviewed and non-contributory. Past Med Surg Social Fam HX - Past Medical History Medical history: cancer, hypertension, myocardial infarction Additional medical history: SMALL CELL LUNG CA METS TO LIVER. SIADH, broken back- lower Psychiatric history: no psych history - Past Surgical History Surgical History: non-contributory Additional surgical history: LEFT FOOT SX, LEFT HIP FX, right 4th digit surgery - Social History Smoking Status: Former smoker Smokeless Tobacco Status: No Alcohol use: none Drug use: none - Family History Father Living Status: Age at : 56 Cause of : stomach/lung cancer Hx Family Cardiac Disorders: Yes Hx Family Respiratory Disorders: Yes Hx Family Cancer: Yes Internal Medicine - H&P: Meds Aspirin [Lo-Dose Aspirin EC] 81 mg PO DAILY 12/03/17 [History] Flaxseed Oil [[place]-3 Flaxseed Oil] 1 cap PO DAILY 12/03/17 [History] Folic Acid [FA-8] 0.8 mg PO DAILY 12/03/17 [History] Garlic 1,000 mg PO DAILY 12/03/17 [History] [place]-3 Fatty Acids [Fish Oil Concentrate] 1,000 mg PO DAILY 12/03/17 [History] Promethazine [Phenergan] 25 mg PO Q6HR PRN #30 tablet 12/26/17 [Rx] Albuterol Sulfate [Albuterol Inhaler] 1 puff IH Q4HR #1 hfa.aer.ad 01/17/18 [Rx] Cholecalciferol (D-3) [Vitamin D] 1,000 unit PO DAILY 02/27/18 [History] Magic Mouthwash [Magic Mouthwash BLM] 10 ml PO QID PRN #240 ml 07/13/18 [Rx] Dronabinol [Marinol] 5 mg PO BID 30 Days #60 capsule 08/13/18 [Rx] Lactulose 20 gm PO BID #1 bottle 09/14/18 [Rx] Sodium Bicarbonate 650 mg PO DAILY 10/06/18 [History] 0.9 % Sodium Chloride 100 ml IVC .Q10H ivbag 10/10/18 [Rx] Acetaminophen [Tylenol] 650 mg PO Q4HR PRN tablet 10/10/18 [Rx] Enoxaparin [Lovenox] 40 mg SQ 0600 syringe 10/10/18 [Rx] Levofloxacin 750 MG/150 ML [Levaquin Premix 750mg/150 mL] 750 mg IVPB DAILY #7 bag 10/10/18 [Rx] Losartan [Cozaar] 100 mg PO DAILY tablet 10/10/18 [Rx] Potassium Chloride 20 meq PO BID tab.er.prt 10/10/18 [Rx] Tamsulosin [Flomax] 0.8 mg PO HS capsule 10/10/18 [Rx] amLODIPine [Norvasc] 10 mg PO DAILY tablet 10/10/18 [Rx] hydrALAZINE [HydrALAZINE] 25 mg PO Q8HR tablet 10/10/18 [Rx] Allergy/AdvReac Type Severity Reaction Status Date / Time Anccpks-Cyv-Zck Reductase Allergy See Verified 09/14/18 09:27 Inhibitor Comments [Statins] All Systems PM: A 10-system review of systems was performed and is negative for pertinent findings except as documented above in the HPI. - Constitutional Constitutional: anorexia, fatigue, malaise, weakness, weight loss, no chills, no excessive sweating, no lethargy - EENT Eyes: no change in vision, no diplopia, no photophobia Nose, mouth and throat: no change in voice, no dysphagia, no odynophagia, no sore throat, no throat swelling - Cardiovascular Cardiovascular ROS IM: no chest pain - Respiratory Respiratory: no cough, no dyspnea, no hemoptysis - Gastrointestinal Gastrointestinal: nausea, no abdominal pain - Genitourinary Genitourinary ROS male: no difficulty urinating, no genital lesions - Integumentary Integumentary IM: sores (sacral) - Neurological Neurological ROS: weakness, no confusion - Psychiatric Psychiatric: no confusion - Endocrine Endocrine IM: no cold intolerance, no excessive sweating, no heat intolerance - Constitutional Vitals: Temp Pulse Resp BP Pulse Ox 96.8 F L 62 16 151/71 94 10/10/18 12:26 10/10/18 12:26 10/10/18 12:26 10/10/18 12:26 10/10/18 12:26 General appearance: Present: cachectic, A&O X 3, no acute distress Exam: . - Head Head exam: Present: atraumatic, normocephalic - Eye Eye exam: Present: PERRL, conjuntiva pink, sclera anicteric Pupils: Present: PERRL - ENT ENT exam: Present: normal external ear exam, normal oropharynx - Neck Neck exam general surgery: Present: supple, trachea midline. Absent: lymphadenopathy - Respiratory Respiratory exam: Present: decreased breath sounds. Absent: accessory muscle use, rales, rhonchi, wheezes - Cardiovascular Cardiovascular exam: Present: RRR, +S1, +S2. Absent: diastolic murmur, gallop, rubs, systolic murmur - GI/Abdominal GI/Abdominal exam: Present: normal bowel sounds, soft, no peritoneal signs. Absent: distended, tenderness - Extremities Exam Extremities exam: Present: warm, radial pulses palpable and symmetrical. Absen t: calf tenderness, cyanotic, pedal edema - Neurological Exam Neurological exam: Present: CN II-XII intact, oriented X3, no focal deficits. Absent: pronater drift, facial droop, speech deficit - Skin Skin exam: Present: dry Additional comments: stage I sacral decub ulcer present on admission - Assessment and Plan (1) Weakness Current Visit: No Status: Acute Assessment and plan: Multifactorial related to worsening metastatic lung cancer, poor PO, hyponatremia, deconditioning.. - Oncology consulted for evaluation. - Nutrition consult, Ensure TID WM - Suspect SIADH, will avoid IV fluids for right now since patient received 3.5 L prior to admission and sodium went from 132 to 124. - Consult Nephrology. - PT/OT evaluation. (2) 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 Current Visit: No Status: Acute Assessment and plan: Oncology consulted. (3) Right upper lobe pneumonia Current Visit: No Status: Acute Assessment and plan: Started on Levaquin at [place] Continue Levaquin MRSA screen Resp infectious panel Legionella and strep ag's Qualifiers: Pneumonia type: due to unspecified organism Qualified Code(s): J18.1 - Lobar pneumonia, unspecified organism (4) Severe protein-calorie malnutrition Current Visit: Yes Status: Acute Assessment and plan: Nutrition consult. (5) Decubitus ulcer of sacral region, stage 1 Current Visit: Yes Status: Acute (6) Dehydration Current Visit: No Status: Acute (7) HTN (hypertension) Current Visit: No Status: Acute Assessment and plan: Awaiting med rec Per notes, patient SBP got in 200s and noted got better with Hydralazine PO, Norvasc, Cozaar. We will restart these based on this report to avoid any acute hypertensive episodes. Qualifiers: Hypertension type: essential hypertension Qualified Code(s): I10 - Essential (primary) hypertension (8) Low TSH level Current Visit: No Status: Acute Assessment and plan: Free t4 seen to be high, but not in range for medications. Could be from acute illness, will follow-up. (9) Small cell lung cancer Current Visit: No Status: Acute (10) CAD (coronary artery disease) Current Visit: No Status: Chronic Assessment and plan: Med recs pending. Qualifiers: Coronary Disease-Associated Artery/Lesion type: [place] artery [place] vs. transplanted heart: [place] heart Associated angina: without angina Qualified Code(s): I25.10 - Atherosclerotic heart disease of [place] coronary artery without angina pectoris - Time Spent With Patient Total time spent is greater than 50% in coordination of care (as documented) at patient's floor/unit and/or counseling patient:
[2018-10-10] MEDS ORDERED: Naloxone 0.4 MG/ML INJ IVP PRN (16:30)
[2018-10-10] MEDS ORDERED: Ondansetron 4 MG/2 ML VIAL IVP PRN (16:30)
[2018-10-10] MEDS ORDERED: MOM Conc 10 ML UD.LIQ PO PRN (16:30)
[2018-10-10] MEDS ORDERED: Ipratropium/Albuterol Neb 3 ML IH PRN (16:39)
[2018-10-10] MEDS: *HR* Heparin 5,000 UNIT/ML VIAL SQ SCH (18:07)
[2018-10-10] MEDS: hydrALAZINE 25 MG TABLET PO SCH (23:53)
[2018-10-11] MEDS: *HR* Heparin 5,000 UNIT/ML VIAL SQ SCH ×2 (05:20→18:02)
[2018-10-11 05:55] LABS: Basophils % 0.1 %; Hematocrit 31.4 % (37.5-50.1); Hemoglobin 11.3 g/dL (12.9-16.9); Immature Granulocytes % 0.2 % (0-4); Lymphocytes # 0.5 K/mcL (0.6-4.6); Lymphocytes % 5.2 %; Mean Corpuscular Hemoglobin 31.3 pg (28.0-33.3); Mean Platelet Volume 9.5 fL (9.4-12.4); Monocytes # 0.9 K/mcL (0.0-1.3); Monocytes % 10.9 %; Neutrophils # 7.2 K/mcL (1.6-8.9); Platelet Count 167 K/mcL (140-400); Red Blood Count 3.61 M/mcL (4.19-5.50); Red Cell Distribution Width 11.8 % (11.5-14.5); Segmented Neutrophils % 83.6 %; White Blood Count 8.6 K/mcL (4.3-11.1)
[2018-10-11 06:02] LABS: INR 1.2; Prothrombin Time 13.3 Seconds (9.4-12.1)
[2018-10-11 06:16] LABS: BUN/Creatinine Ratio 24 (6-26); Blood Urea Nitrogen 10 mg/dL (8-23); Calcium 9.3 mg/dL (8.6-10.3); Carbon Dioxide 22 mEq/L (23-29); Chloride 92 mEq/L (98-107); Glucose 135 mg/dL (70-105); Magnesium 1.7 mg/dL (1.6-2.6); Osmolality,Calculated 265 (280-300); Potassium 3.3 mEq/L (3.5-5.1); Sodium 127 mEq/L (136-145); eGFR For African Americans > 60 (> 60); eGFR For Non-African Americans > 60 (> 60)
[2018-10-11] MEDS: levoFLOXacin 750 MG/150 ML 750 MG/150 ML BAG IVPB SCH (09:06)
[2018-10-11] MEDS: hydrALAZINE 25 MG TABLET PO SCH ×3 (09:06→23:51)
[2018-10-11] MEDS: amLODIPine 5 MG TABLET PO SCH (09:06)
[2018-10-11 09:23] LABS: Adenovirus Not Detected (Not Detect); Bordetella Pertussis Not Detected (Not Detect); Chlamydophila pneumoniae Not Detected (Not Detect); Coronavirus 229E Not Detected (Not Detect); Coronavirus HKU1 Not Detected (Not Detect); Coronavirus NL63 Not Detected (Not Detect); Coronavirus OC43 Not Detected (Not Detect); Human Metapneumovirus Not Detected (Not Detect); Human Rhinovirus/Enterovirus Not Detected (Not Detect); Influenza A Subtype 2009 H1 Not Detected (Not Detect); Influenza A Untypeable Not Detected (Not Detect); Influenza B Not Detected (Not Detect); Mycoplasma pneumoniae Not Detected (Not Detect); Parainfluenza Virus 1 Not Detected (Not Detect); Parainfluenza Virus 2 Not Detected (Not Detect); Parainfluenza Virus 3 Not Detected (Not Detect); Parainfluenza Virus 4 Not Detected (Not Detect); Respiratory Syncytial Virus Not Detected (Not Detect)
[2018-10-11 11:03] LABS: Triiodothyronine (T3) Free 5.43 pg/mL (2.50-3.90); Triiodothyronine (T3) Total 1.29 ng/mL (0.87-1.78)
--- NOTE | 2018-10-11 11:12 | Oncology Inp Consult Note ---
<Jigar Sabillon - Last Filed: 10/11/18 13:47> Date of Encounter: 10/11/18 - Data of Consult Requesting Physician: Jill Gongora Primary Care Provider: Evan Dominguez MD Medications and Allergies Aspirin [Lo-Dose Aspirin EC] 81 mg PO DAILY 12/03/17 [History] Flaxseed Oil [[place]-3 Flaxseed Oil] 1 cap PO DAILY 12/03/17 [History] Folic Acid [FA-8] 0.8 mg PO DAILY 12/03/17 [History] Garlic 1,000 mg PO DAILY 12/03/17 [History] [place]-3 Fatty Acids [Fish Oil Concentrate] 1,000 mg PO DAILY 12/03/17 [History] Cholecalciferol (D-3) [Vitamin D] 1,000 unit PO DAILY 02/27/18 [History] Sodium Bicarbonate 650 mg PO DAILY 10/06/18 [History] Acetaminophen [Tylenol] 650 mg PO Q4HR PRN tablet 10/10/18 [Rx] Losartan [Cozaar] 100 mg PO DAILY tablet 10/10/18 [Rx] Potassium Chloride 20 meq PO BID tab.er.prt 10/10/18 [Rx] Tamsulosin [Flomax] 0.8 mg PO HS capsule 10/10/18 [Rx] amLODIPine [Norvasc] 10 mg PO DAILY tablet 10/10/18 [Rx] hydrALAZINE [HydrALAZINE] 25 mg PO Q8HR tablet 10/10/18 [Rx] Lactulose 30 ml PO BID PRN 10/11/18 [History] Vitamin E Acid Succinate [Vitamin E] 400 units PO DAILY 10/11/18 [History] Allergy/AdvReac Type Severity Reaction Status Date / Time Xtklyvj-Hdr-Lbu Reductase Allergy See Verified 09/14/18 09:27 Inhibitor Comments [Statins] Consult Discharge Plan - Plan Referrals: Evan Dominguez MD [Primary Care Provider] - Inpatient Charges Provider: Dr. Tena Sabillon Consult - Inpatient Medicare Only: [id number] - Attending Attestation I examined this patient and my medical decision-making was reviewed with the Advanced Practice Nurse. I agree with the documented findings, disposition and treatment plan as described except to the extent set forth below. -The patient is a 73 yo WM w/h/o extensive stage SCLC now p/w fatigue, weakness, RUL PNA, and hyponatremia. -Currently on Levaquin for his PNA and being fluid restricted for treatment of his SIADH -We will continue to follow along with you. Thanks for the consult! <Jo Ann Mary - Last Filed: 10/11/18 17:05> Date of Encounter: 10/11/18 Time of Encounter: 11:11 Assessment and Plan (1) Small cell lung cancer Status: Acute Assessment and plan: . Metastatic small cell carcinoma of the left lung. He has a centrally located left lung mass with associated hilar and mediastinal adenopathy. In addition, he has disease involving his liver and possibly spine. 2. SIADH Prior therapy: 1. Carboplatin with etoposidex 6 cycles 12/27/2017-04/13/2019 (does use by 25% secondary to fatigue) 2. Consolidative chest radiation completed 07/09/2018 3. Palliative WBRT completed 06/12/2018 Current therapy: 1. Ipilimumab with nivolumab initiated 08/23/2018 C3 10/05/18 held and patient and given IVF's. C2 09/14/18 Plan: Treatment decisions deferred to primary oncologist, Dr. Pabon. (2) Severe protein-calorie malnutrition Status: Acute Assessment and plan: Poor by mouth intake Plan: Referral to dietitian Daily weights (3) Hyponatremia Status: Acute Assessment and plan: Sodium 127 today History of SIADH Plan: Nephrology consult, recommendations appreciated (4) Weakness Status: Acute Assessment and plan: Progressive weakness. Patient denies changes or improvement in weakness today. Plan: PT/OT evaluation - Data of Consult Patient: known to practice within the last 3 years Requesting Physician: Jill Gongora Primary Care Provider: Evan Dominguez MD - Consult Narrative Reason for consult: metastatic small cell to the left lung History of present illness: Eb Elizondo is a 73 yo male being treated by Dr. Pabon at [facility] for metastatic small cell carcinoma of the left lung. He last received Yervoy (ipilimumab) and Opdivo (nivolumab) on 09/14/18. His treatment on 10/05/18 was held due to dehydration. He had progressive weakness and unable to get out of bed after and called EMS for assistance. He was admitted to [facility] for hydration. After 3.5L of IVF's, patient sodium level dropped from 132 to 124. He was transferred to [facility] for further management. Oncology history: 1. Metastatic small cell carcinoma of the left lung. He has a centrally located left lung mass with associated hilar and mediastinal adenopathy. In addition, he has disease involving his liver and possibly spine. 2. SIADH Prior therapy: 1. Carboplatin with etoposidex 6 cycles 12/27/2017-04/13/2019 (does use by 25% secondary to fatigue) 2. Consolidative chest radiation completed 07/09/2018 3. Palliative WBRT completed 06/12/2018 Current therapy: 1. Ipilimumab with nivolumab initiated 08/23/2018 C3 10/05/18 held and patient and given IVF's. C2 09/14/18 Treatment intent: Palliative Review of systems: + fatigue and weakness + poor po intake, mild nausea Denies fever or chills. Denies vomiting, constipation, or abdominal pain. Denies headache or vision changes Denies shortness of breath or chest pain. Past Med Surg Social Fam HX - Past Medical History Medical history: cancer, hypertension, myocardial infarction Additional medical history: SMALL CELL LUNG CA METS TO LIVER. SIADH, broken back- lower Psychiatric history: no psych history - Past Surgical History Surgical History: non-contributory Additional surgical history: LEFT FOOT SX, LEFT HIP FX, right 4th digit surgery - Social History Smoking Status: Former smoker Smokeless Tobacco Status: No Alcohol use: none Drug use: none - Family History Father Living Status: Age at : 56 Cause of : stomach/lung cancer Hx Family Cardiac Disorders: Yes Hx Family Respiratory Disorders: Yes Hx Family Cancer: Yes Oncology - Exam - Additional findings Additional findings: General: Alert and oriented, fatigued appearing. Pale Mental Status: Affect appropriate for circumstances Lungs: Clear to auscultation Cardiovascular: Regular rate and rhythm. No gallops, murmurs, or rubs. Abdomen: Soft, nontender; Extremities: No edema. No calf swelling or tenderness. No joint deformity. Neurologic: Alert, cranial nerves II-XII intact; no focal weakness or sensory abnormalities. Oncology Inpatient Results Labs: Laboratory Results - last 24 hr 10/10/18 10/11/18 10/11/18 17:26 05:15 05:15 WBC RBC Hgb Hct MCV MCH MCHC RDW Plt Count MPV Immature Gran % Seg Neutrophils % Lymphocytes % Monocytes % Eosinophils % Basophils % Neutrophils # Lymphocytes # Monocytes # Eosinophils # Basophils # Smear Path Review PT INR Sodium Potassium Chloride Carbon Dioxide BUN Creatinine Est GFR ( Amer) Est GFR (Non-Af Amer) BUN/Creatinine Ratio Glucose Calculated Osmolality Calcium Phosphorus Magnesium Iron % Saturation Transferrin Ferritin Vitamin B12 25-OH Vitamin D Total 42 Folate Free T3 Total T3 Nasal Screen MRSA (PCR) Negative Chlamy pneumoniae PCR Not Detected Adenovirus (PCR) Not Detected B. pertussis DNA (PCR) Not Detected B.parapertussis DNA PCR Not Detected Coronavirus OC43 (PCR) Not Detected Coronavirus HKU1 (PCR) Not Detected Coronavirus 229E (PCR) Not Detected Coronavirus NL63 (PCR) Not Detected Human Metapneumovir PCR Not Detected Influenza A (H1) PCR Not Detected Influ A (H1N1/09) PCR Not Detected Influenza A (H3) PCR Not Detected Influenza A Untype (PCR) Not Detected Influenza Type B (PCR) Not Detected M.pneumoniae DNA (PCR) Not Detected Parainfluenza 1 (PCR) Not Detected Parainfluenza 2 (PCR) Not Detected Parainfluenza 3 (PCR) Not Detected Parainfluenza 4 (PCR) Not Detected RSV (PCR) Not Detected Entero/Rhino (PCR) Not Detected 10/11/18 10/11/18 10/11/18 05:28 05:28 05:28 WBC 8.6 RBC 3.61 L Hgb 11.3 L Hct 31.4 L MCV 87.0 MCH 31.3 MCHC 36.0 H RDW 11.8 Plt Count 167 MPV 9.5 Immature Gran % 0.2 Seg Neutrophils % 83.6 Lymphocytes % 5.2 Monocytes % 10.9 Eosinophils % 0.0 Basophils % 0.1 Neutrophils # 7.2 Lymphocytes # 0.5 L Monocytes # 0.9 Eosinophils # 0.0 Basophils # 0.0 Smear Path Review PT 13.3 H INR 1.2 Sodium 127 L Potassium 3.3 L Chloride 92 L Carbon Dioxide 22 L BUN 10 Creatinine 0.41 L Est GFR ( Amer) > 60 Est GFR (Non-Af Amer) > 60 BUN/Creatinine Ratio 24 Glucose 135 H Calculated Osmolality 265 L Calcium 9.3 Phosphorus 3.0 Magnesium 1.7 Iron % Saturation Transferrin Ferritin Vitamin B12 25-OH Vitamin D Total Folate Free T3 Total T3 Nasal Screen MRSA (PCR) Chlamy pneumoniae PCR Adenovirus (PCR) B. pertussis DNA (PCR) B.parapertussis DNA PCR Coronavirus OC43 (PCR) Coronavirus HKU1 (PCR) Coronavirus 229E (PCR) Coronavirus NL63 (PCR) Human Metapneumovir PCR Influenza A (H1) PCR Influ A (H1N1/09) PCR Influenza A (H3) PCR Influenza A Untype (PCR) Influenza Type B (PCR) M.pneumoniae DNA (PCR) Parainfluenza 1 (PCR) Parainfluenza 2 (PCR) Parainfluenza 3 (PCR) Parainfluenza 4 (PCR) RSV (PCR) Entero/Rhino (PCR) 10/11/18 10/11/18 10/11/18 05:28 11:36 11:36 WBC RBC Hgb Hct MCV MCH MCHC RDW Plt Count MPV Immature Gran % Seg Neutrophils % Lymphocytes % Monocytes % Eosinophils % Basophils % Neutrophils # Lymphocytes # Monocytes # Eosinophils # Basophils # Smear Path Review See Below PT INR Sodium Potassium Chloride Carbon Dioxide BUN Creatinine Est GFR ( Amer) Est GFR (Non-Af Amer) BUN/Creatinine Ratio Glucose Calculated Osmolality Calcium Phosphorus Magnesium Iron % Saturation Transferrin Ferritin Vitamin B12 235 L 25-OH Vitamin D Total Folate 19.0 H Free T3 5.43 H Total T3 1.29 Nasal Screen MRSA (PCR) Chlamy pneumoniae PCR Adenovirus (PCR) B. pertussis DNA (PCR) B.parapertussis DNA PCR Coronavirus OC43 (PCR) Coronavirus HKU1 (PCR) Coronavirus 229E (PCR) Coronavirus NL63 (PCR) Human Metapneumovir PCR Influenza A (H1) PCR Influ A (H1N1/09) PCR Influenza A (H3) PCR Influenza A Untype (PCR) Influenza Type B (PCR) M.pneumoniae DNA (PCR) Parainfluenza 1 (PCR) Parainfluenza 2 (PCR) Parainfluenza 3 (PCR) Parainfluenza 4 (PCR) RSV (PCR) Entero/Rhino (PCR) 10/11/18 11:36 WBC RBC Hgb Hct MCV MCH MCHC RDW Plt Count MPV Immature Gran % Seg Neutrophils % Lymphocytes % Monocytes % Eosinophils % Basophils % Neutrophils # Lymphocytes # Monocytes # Eosinophils # Basophils # Smear Path Review PT INR Sodium Potassium Chloride Carbon Dioxide BUN Creatinine Est GFR ( Amer) Est GFR (Non-Af Amer) BUN/Creatinine Ratio Glucose Calculated Osmolality Calcium Phosphorus Magnesium Iron 19 L % Saturation 9 L Transferrin 158 L Ferritin 557 H Vitamin B12 25-OH Vitamin D Total Folate Free T3 Total T3 Nasal Screen MRSA (PCR) Chlamy pneumoniae PCR Adenovirus (PCR) B. pertussis DNA (PCR) B.parapertussis DNA PCR Coronavirus OC43 (PCR) Coronavirus HKU1 (PCR) Coronavirus 229E (PCR) Coronavirus NL63 (PCR) Human Metapneumovir PCR Influenza A (H1) PCR Influ A (H1N1/09) PCR Influenza A (H3) PCR Influenza A Untype (PCR) Influenza Type B (PCR) M.pneumoniae DNA (PCR) Parainfluenza 1 (PCR) Parainfluenza 2 (PCR) Parainfluenza 3 (PCR) Parainfluenza 4 (PCR) RSV (PCR) Entero/Rhino (PCR)
--- NOTE | 2018-10-11 12:19 | Internal Med Progress Note ---
Hospitalist Progress Note - Encounter Date of Encounter: 10/11/18 Time of Encounter: 12:35 - Subjective Interval History: Patient up to chair. Family states they believe he looks a little better today. Patient states weakness is about the same. - Exam Vitals: Temp Pulse Resp BP Pulse Ox 98.7 F 80 16 159/75 95 10/11/18 10:54 10/11/18 10:54 10/11/18 10:54 10/11/18 10:54 10/11/18 10:54 Exam: Gen: AAO x3, NAD, underweight Head: NC, AT ENT: MMM, no lymphadenopathy CVS: RRR Lungs: decreased breath sounds bilaterally Abd; soft, nt/nd Ext: no edema, no cyanosis. Skin: warm, dry . - Assessment and Plan (1) Hyponatremia Current Visit: No Status: Acute Assessment and Plan: Suspect SIADH, will avoid IV fluids for right now since patient received 3.5 L prior to admission and sodium went from 132 to 124. IV fluids were not resumed and patient sodium now 127. Nephrology consulted, recommendations appreciated. (2) Weakness Current Visit: No Status: Acute Assessment and Plan: Multifactorial related to worsening metastatic lung cancer, poor PO, hyponatrem ia, deconditioning.. - Oncology consulted for evaluation. - Nutrition consult, Ensure TID WM - Suspect SIADH, will avoid IV fluids for right now since patient received 3.5 L prior to admission and sodium went from 132 to 124. - Consult Nephrology. - PT/OT evaluation. (3) 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 Current Visit: No Status: Acute Assessment and Plan: Oncology consulted. We discussed goals of care today with daughter and present at bedside. As of now patient wishes to remain full code. I mentioned Palliative services. At this time, they will consider Palliative consult, but are okay with current care. (4) Right upper lobe pneumonia Current Visit: No Status: Acute Assessment and Plan: Started on Levaquin at [place] MRSA screen Resp infectious panel Legionella and strep ag's Continue Levaquin (5) Severe protein-calorie malnutrition Current Visit: Yes Status: Acute Assessment and Plan: Nutrition consult. (6) Decubitus ulcer of sacral region, stage 1 Current Visit: Yes Status: Acute Assessment and Plan: Wound care consulted. (7) Dehydration Current Visit: No Status: Acute (8) HTN (hypertension) Current Visit: No Status: Acute Assessment and Plan: Awaiting med rec Per notes, patient SBP got in 200s and noted got better with Hydralazine PO, Norvasc, Cozaar. We will restart these based on this report to avoid any acute hypertensive episodes. (9) Low TSH level Current Visit: No Status: Acute Assessment and Plan: Free t4 seen to be high, but not in range for medications. Could be from acute illness, will follow-up. (10) Small cell lung cancer Current Visit: No Status: Acute (11) CAD (coronary artery disease) Current Visit: No Status: Chronic - Time Spent with Patient Total time spent is greater than 50% in coordination of care (as documented) at patient's floor/unit and/or counseling patient: Internal Medicine: Result - Labs CBC & Chem 7: 10/11/18 05:28 10/11/18 05:28 Labs: Short CBC 10/11/18 Range/Units 05:28 WBC 8.6 (4.3-11.1) K/mcL Hgb 11.3 L (12.9-16.9) g/dL Hct 31.4 L (37.5-50.1) % Plt Count 167 (140-400) K/mcL Neutrophils # 7.2 (1.6-8.9) K/mcL BMP 10/11/18 05:28 Sodium 127 L Potassium 3.3 L Chloride 92 L Carbon Dioxide 22 L BUN 10 Creatinine 0.41 L Glucose 135 H Calcium 9.3 - ABG Interpretation ABG results: PT/INR, D-dimer PT 13.3 Seconds (9.4-12.1) H 10/11/18 05:28 Consult Discharge Plan - Plan Referrals: Evan Dominguez MD [Primary Care Provider] - (4) Right upper lobe pneumonia Qualifiers: Pneumonia type: due to unspecified organism Qualified Code(s): J18.1 - Lobar pneumonia, unspecified organism (8) HTN (hypertension) Qualifiers: Hypertension type: essential hypertension Qualified Code(s): I10 - Essential (primary) hypertension (11) CAD (coronary artery disease) Qualifiers: Coronary Disease-Associated Artery/Lesion type: [place] artery [place] vs. transplanted heart: [place] heart Associated angina: without angina Qualified Code(s): I25.10 - Atherosclerotic heart disease of [place] coronary artery without angina pectoris
[2018-10-11 12:28] LABS: % Iron Saturation 9 % (20-55); Iron 19 mcg/dL (65-175); Transferrin 158 mg/dL (203-362)
[2018-10-11 12:46] LABS: Ferritin 557 ng/mL (20-250)
--- NOTE | 2018-10-11 15:23 | Nephrology Consult Note ---
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 He responded poorly to normal saline that had to be administered secondary to his dehydrated state. The patient still seems to be overall volume negative per my assessment. I will give the patient normal saline that has supplemental potassium added to the regimen. We will need to monitor his serum sodium and if it falls any lower than where it is now on this solution and I would discontinue the intravenous solution. The carrier fluids for all of his intravenous medications needs to be changed to 0.9. The patient needs to be on a fluid restriction of no more than one half liters of fluids daily. His thyroid hormone is abnormally elevated. I will check a random cortisol. The patient's overall prognosis is poor, however, it is not certain that the patient is to transition to comfort care at this time. (2) Metabolic acidosis Current Visit: Yes Status: Acute If his serum bicarbonate level decreases any further then he will need supplemental bicarbonate. (3) Severe protein-calorie malnutrition Current Visit: Yes Status: Acute (4) HTN (hypertension) Current Visit: No Status: Acute Titrate blood pressure medications needed. Although I think is not likely to be a significant contributor can consider changing the losartan to hydralazine. Qualifiers: Hypertension type: essential hypertension Qualified Code(s): I10 - Essential (primary) hypertension (5) Low TSH level Current Visit: No Status: Acute Patient will what appears to be hyperthyroidism. With his elevated blood pressure and relatively high heart rate consider treatment with beta blockers. 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 Replace as needed. History of Present Illness - Reason for Consult Consult date: 10/11/18 hyponatremia - Chief Complaint Hyponatremia - History of Present Illness Mr. Elizondo is a 73 yo man with metastatic lung cancer who presents secondary to failure to thrive. The patient was seen, however, he did not participate much in the history. His family was at the bedside and they provided details about his recent history. The patient is receiving treatment for metastatic lung cancer and has knots in eating or drinking well. No nausea, no vomiting or diarrhea. His family reports that he has developed hyponatremia before as this is how his lung cancer was diagnosed. Past Med Surg Social Fam HX - Past Medical History Medical history: cancer, hypertension, myocardial infarction Additional medical history: SMALL CELL LUNG CA METS TO LIVER. SIADH, broken back- lower Psychiatric history: no psych history - Past Surgical History Surgical History: non-contributory Additional surgical history: LEFT FOOT SX, LEFT HIP FX, right 4th digit surgery - Social History Smoking Status: Former smoker Smokeless Tobacco Status: No Alcohol use: none Drug use: none - Family History Father Living Status: Age at : 56 Cause of : stomach/lung cancer Hx Family Cardiac Disorders: Yes Hx Family Respiratory Disorders: Yes Hx Family Cancer: Yes Medications and Allergies Aspirin [Lo-Dose Aspirin EC] 81 mg PO DAILY 12/03/17 [History] Flaxseed Oil [[place]-3 Flaxseed Oil] 1 cap PO DAILY 12/03/17 [History] Folic Acid [FA-8] 0.8 mg PO DAILY 12/03/17 [History] Garlic 1,000 mg PO DAILY 12/03/17 [History] [place]-3 Fatty Acids [Fish Oil Concentrate] 1,000 mg PO DAILY 12/03/17 [History] Cholecalciferol (D-3) [Vitamin D] 1,000 unit PO DAILY 02/27/18 [History] Sodium Bicarbonate 650 mg PO DAILY 10/06/18 [History] Acetaminophen [Tylenol] 650 mg PO Q4HR PRN tablet 10/10/18 [Rx] Losartan [Cozaar] 100 mg PO DAILY tablet 10/10/18 [Rx] Potassium Chloride 20 meq PO BID tab.er.prt 10/10/18 [Rx] Tamsulosin [Flomax] 0.8 mg PO HS capsule 10/10/18 [Rx] amLODIPine [Norvasc] 10 mg PO DAILY tablet 10/10/18 [Rx] hydrALAZINE [HydrALAZINE] 25 mg PO Q8HR tablet 10/10/18 [Rx] Lactulose 30 ml PO BID PRN 10/11/18 [History] Vitamin E Acid Succinate [Vitamin E] 400 units PO DAILY 10/11/18 [History] Allergy/AdvReac Type Severity Reaction Status Date / Time Nftxrgu-Ujp-Xyt Reductase Allergy See Verified 09/14/18 09:27 Inhibitor Comments [Statins] Review of Systems All Systems: reviewed and no additional remarkable complaints except as stated (As documented in the history of present illness) Exam - Vital Signs Vital signs: Initial Vital Signs Temp Pulse Resp BP Pulse Ox 96.8 F L 62 16 151/71 94 10/10/18 12:26 10/10/18 12:26 10/10/18 12:26 10/10/18 12:26 10/10/18 12:26 Vital Signs - Last 8 Hours Temp Pulse Resp BP Pulse Ox 10/11/18 10:54 98.7 F 80 16 159/75 95 10/11/18 07:23 98.1 F 94 16 169/78 94 Intake and Output 10/10/18 10/11/18 10/11/18 23:59 07:59 15:59 Intake Total 0 / 0 0 / 0 Output Total 200 / 200 0 / 0 Balance -200 / -200 0 / 0 0 / 0 Intake: Oral 0 / 0 0 / 0 Output: Urine 200 / 200 0 / 0 Other: Stool Size Small Stool Consistency loose Stool Color Brown # Voids 0 1 # Urine Diapers 1 1 1 # Bowel Movements 0 # Bowel Movement Diapers 1 0 Weight 61.8 kg Patient Weight 10/11/18 23:59 Weight 61.8 kg - General Appearance General appearance: well-developed, cachectic, chronically ill, frail EENT: ATNC Neck: supple Respiratory: clear Cardiology: no edema, regular rate Gastrointestinal: no tenderness Integumentary: warm and dry Neurologic: alert and oriented x3 Musculoskeletal: no cyanosis Psychiatric: depressed Results - Lab Results 10/11/18 05:28 10/11/18 05:28 Most recent lab results 10/11/18 05:28 Calcium 9.3 Phosphorus 3.0 Magnesium 1.7 Consult Discharge Plan - Plan Referrals: Evan Dominguez MD [Primary Care Provider] -
[2018-10-11] MEDS ORDERED: Potassium Chloride 40 MEQ, Lidocaine 1% 2 ML in D5% in Water 500 ML IVPB ONE (15:27)
[2018-10-11] MEDS ORDERED: 0.9 % Sodium Chloride w KCl 20 MEQ/1,000 ML MLS IVC SCH (15:30)
[2018-10-11] MEDS ORDERED: Lactulose Oral Soln 20 GM/30 ML UDC PO PRN (18:58)
[2018-10-11] MEDS ORDERED: Acetaminophen 325 MG TABLET PO PRN (18:58)
[2018-10-12 04:07] LABS: Basophils % 0.2 %; Eosinophils % 0.7 %; Hematocrit 28.6 % (37.5-50.1); Immature Granulocytes % 0.4 % (0-4); Lymphocytes # 0.6 K/mcL (0.6-4.6); Lymphocytes % 11.6 %; Mean Corpuscular Hemoglobin 31.3 pg (28.0-33.3); Mean Corpuscular Volume 89.4 fL (83.0-100.0); Mean Platelet Volume 8.9 fL (9.4-12.4); Monocytes # 0.7 K/mcL (0.0-1.3); Monocytes % 12.4 %; Platelet Count 146 K/mcL (140-400); Red Cell Distribution Width 11.9 % (11.5-14.5); Segmented Neutrophils % 74.7 %; White Blood Count 5.3 K/mcL (4.3-11.1)
[2018-10-12 04:32] LABS: BUN/Creatinine Ratio 30 (6-26); Blood Urea Nitrogen 13 mg/dL (8-23); Calcium 8.7 mg/dL (8.6-10.3); Carbon Dioxide 22 mEq/L (23-29); Chloride 96 mEq/L (98-107); Glucose 123 mg/dL (70-105); Magnesium 1.9 mg/dL (1.6-2.6); Osmolality,Calculated 267 (280-300); Phosphorous 3.5 mg/dL (2.7-4.5); Potassium 3.7 mEq/L (3.5-5.1); Sodium 128 mEq/L (136-145); eGFR For African Americans > 60 (> 60); eGFR For Non-African Americans > 60 (> 60)
[2018-10-12] MEDS: *HR* Heparin 5,000 UNIT/ML VIAL SQ SCH (06:26)
[2018-10-12] MEDS ORDERED: Cholecalciferol (D-3) 1,000 UNIT TABLET PO SCH (09:00)
[2018-10-12] MEDS ORDERED: VITAMIN E ACID SUCCINATE 400 UNIT PO SCH (09:00)
[2018-10-12] MEDS ORDERED: Aspirin Enteric Coated 81 MG Tablet PO SCH (09:00)
[2018-10-12] MEDS ORDERED: Folic Acid 1 MG TABLET PO SCH (09:00)
[2018-10-12 10:12] VITALS: BP 149/53
[2018-10-12] MEDS: amLODIPine 5 MG TABLET PO SCH (10:15)
[2018-10-12] MEDS: levoFLOXacin 750 MG/150 ML 750 MG/150 ML BAG IVPB SCH (10:15)
[2018-10-12] MEDS: hydrALAZINE 25 MG TABLET PO SCH (10:15)
--- NOTE | 2018-10-12 12:11 | Palliative - Consult Note ---
<Jose Quintero - Last Filed: 10/12/18 12:40> Date of Encounter: 10/12/18 Time of Encounter: 12:04 - Assessment and Plan (1) Goals of care, counseling/discussion Current Visit: Yes Status: Acute Assessment and plan: We spent 30 minutes discussion with patient and family - and daughter. Dr. Pabon, oncologist, has spoken to them and patient has poor prognosis. Decision to discontinue further cancer therapy has been made. Patient denies any pain. He denies any decrease in appetite or PO intake. He reports that he is able to take care of himself. However, independent conversation with and daughter reveals that he is unable to ambulate by himself, has poor PO intake and requires significant assistance from for activities of daily living. He does not have a wheelchair at home, but daughter informs us that she will try to obtain one today. Family and patient are agreeable to be discharged today with home hospice care. He has good family support. and multiple children can provide home assist ance as needed. Plan: -Hospice team to meet with patient and family to discuss home hospice care later today. He will be discharged today. -Pain management as indicated. Currently appears to be controlled -Code status to be changed to DNR CC -will discontinue life-prolonging management and focus on comfort care. Patient is aware that he will not need to follow with Dr. Pabon, oncology, anymore. -Palliative team will sign off at this time. Thank you for your consult. (2) Hyponatremia Current Visit: No Status: Acute Assessment and plan: Chronic hyponatremia. Advised fluid restriction and continue sodium bicarb daily. (3) Small cell lung cancer Current Visit: No Status: Acute Assessment and plan: Metastatic small cell carcinoma of the left lung. He has a centrally located left lung mass with associated hilar and mediastinal adenopathy. In addition, he has disease involving his liver and possibly spine. Patient will be discharged home with hospice. Palliative management Palliative-CN HPI - Data of Consult Patient: new to practice Consult date: 10/12/18 Requesting Physician: Jill Gongora Primary Care Provider: Evan Dominguez MD - Consult Narrative Palliative Care/Comfort Measures: Hospice care Reason for consult: Goals of care History of present illness: Mr. Elizondo is a 73 year old male with history of small cell lung cancer with mets on chemotherapy, CAD presents as a transfer from [facility] due to weakness. Patient initially went to [place] ER at the request of his doctor when he was not able to get out of bed. He has had poor appetite for past several months with nausea and some diarrhea. He was on immunotherapy for lung cancer and treatment was held due to his weakness. Due to his debility he was monitored at [place] and treated for dehydration, hyponatremia, and weakness. He was given IV fluids, prior to transfer listed as +3.5 L total of fluid from all sources. 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 A CT of chest sh owed worsening mets and pneumonia. He was started on Levaquin and blood cultures were obtained. He was transferred to [place] for Oncology evaluation. Oncology has seen him and recommend supportive care in the setting of worsening metastasis and failed immunotherapy management. Patient denies any current symptoms. Reports that he is able to care for himself, tolerating PO intake, able to ambulate with minimal support. He declines any supportive equipment that we can provide him at home. He is adamant about being discharged home today. We spoke with and daughter independently and they report that Mr. Elizondo has difficulty getting out of bed and requires constant care. His appetite is worsening and he is not eating much. He also has difficulty ambulating with his walkers at home and family currently attempting to obtain wheelchair. CC: Jill Gongora - Time Spent with Patient Time: Total time spent is greater than 50% in coordination of care (as documented) at patient's floor/unit and/or counseling patient: Time with patient: 30 minutes Past Med Surg Social Fam HX - Past Medical History Medical history: cancer, hypertension, myocardial infarction Additional medical history: SMALL CELL LUNG CA METS TO LIVER. SIADH, broken back- lower Psychiatric history: no psych history - Past Surgical History Surgical History: non-contributory Additional surgical history: LEFT FOOT SX, LEFT HIP FX, right 4th digit surgery - Social History Smoking Status: Former smoker Smokeless Tobacco Status: No Alcohol use: none Drug use: none - Family History Father Living Status: Age at : 56 Cause of : stomach/lung cancer Hx Family Cardiac Disorders: Yes Hx Family Respiratory Disorders: Yes Hx Family Cancer: Yes Medications and Allergies Aspirin [Lo-Dose Aspirin EC] 81 mg PO DAILY 12/03/17 [History] Flaxseed Oil [[place]-3 Flaxseed Oil] 1 cap PO DAILY 12/03/17 [History] Folic Acid [FA-8] 0.8 mg PO DAILY 12/03/17 [History] Garlic 1,000 mg PO DAILY 12/03/17 [History] Cholecalciferol (D-3) [Vitamin D] 1,000 unit PO DAILY 02/27/18 [History] Sodium Bicarbonate 650 mg PO DAILY 10/06/18 [History] Acetaminophen [Tylenol] 650 mg PO Q4HR PRN tablet 10/10/18 [Rx] Losartan [Cozaar] 100 mg PO DAILY tablet 10/10/18 [Rx] Potassium Chloride 20 meq PO BID tab.er.prt 10/10/18 [Rx] Tamsulosin [Flomax] 0.8 mg PO HS capsule 10/10/18 [Rx] amLODIPine [Norvasc] 10 mg PO DAILY tablet 10/10/18 [Rx] hydrALAZINE [HydrALAZINE] 25 mg PO Q8HR tablet 10/10/18 [Rx] Lactulose 30 ml PO BID PRN 10/11/18 [History] Vitamin E Acid Succinate [Vitamin E] 400 units PO DAILY 10/11/18 [History] Labetalol [Trandate] 100 mg PO BID #60 tablet 10/12/18 [Rx] MOM Conc [MILK OF MAGNESIA conc] 10 ml PO DAILY PRN #1 bottle 10/12/18 [Rx] levoFLOXacin [Levaquin] 750 mg PO DAILY #7 tablet 10/12/18 [Rx] Allergy/AdvReac Type Severity Reaction Status Date / Time Iyoghuz-Hhi-Qee Reductase Allergy See Verified 09/14/18 09:27 Inhibitor Comments [Statins] - Constitutional Constitutional ROS PAL: as per HPI - Cardiovascular Cardiovascular ROS: no chest pain, no leg edema - Respiratory Respiratory: no cough, no dyspnea - Gastrointestinal Gastrointestinal: no abdominal pain, no loose stools - Genitourinary Genitourinary ROS male: no difficulty urinating - Musculoskeletal Musculoskeletal ROS IM: no muscle weakness - Neurological Neurological ROS: no abnormal gait, no weakness Palliative Care-Exam - Constitutional Vitals: Temp Pulse Resp BP Pulse Ox 97.9 F 72 15 149/53 97 10/12/18 10:08 10/12/18 10:08 10/12/18 10:08 10/12/18 10:08 10/12/18 10:08 Exam: General: Alert and oriented, fatigued appearing. Pale Mental Status: AxO x 3 Lungs: Clear to auscultation Cardiovascular: Regular rate and rhythm. No gallops, murmurs, or rubs. Abdomen: Soft, nontender; Extremities: No edema. No calf swelling or tenderness. No joint deformity. Neurologic: Alert, cranial nerves II-XII intact; no focal weakness or sensory abnormalities. Internal Medicine - CN: Reslt - Labs CBC & Chem 7: 10/12/18 03:44 10/12/18 05:52 Labs: Short CBC 10/12/18 Range/Units 03:44 WBC 5.3 (4.3-11.1) K/mcL Hgb 10.0 L (12.9-16.9) g/dL Hct 28.6 L (37.5-50.1) % Plt Count 146 (140-400) K/mcL Neutrophils # 4.0 (1.6-8.9) K/mcL BMP 10/11/18 10/11/18 10/12/18 16:32 21:34 03:44 Sodium 122 L 127 L 128 L Potassium 3.7 Chloride 96 L Carbon Dioxide 22 L BUN 13 Creatinine 0.43 L Glucose 123 H Calcium 8.7 10/12/18 05:52 Sodium 122 L Potassium Chloride Carbon Dioxide BUN Creatinine Glucose Calcium - ABG Interpretation ABG results: PT/INR, D-dimer PT 13.3 Seconds (9.4-12.1) H 10/11/18 05:28 Consult Discharge Plan - Plan Referrals: Evan Dominguez MD [Primary Care Provider] - Prescriptions: levoFLOXacin [Levaquin] 750 mg PO DAILY #7 tablet MOM Conc [MILK OF MAGNESIA conc] 10 ml PO DAILY PRN #1 bottle PRN Reason: Constipation Labetalol [Trandate] 100 mg PO BID #60 tablet Palliative Quality Palliative Quality: Screen for Code Status: Yes, Screen for Goals of Care: Yes, Screen for Pain: Yes Code Status: 10/10/18 16:30 Resuscitation Status: Active [RES] Routine Comment: Resuscitation Status: Full Code Palliative Scale - Palliative Performance Scale How ambulatory is this patient?: Mainly in bed What is patient's level of activity and evidence of disease?: Unable to do most activity, Extensive disease How much self-care assistance does patient require?: Mainly assistance How much oral intake does the patient have?: Normal or reduced What is this patient's level of consciousness?: Full Palliative Performance Score: 40 % <Leyla Gmóez - Last Filed: 10/12/18 13:44> Date of Encounter: 10/12/18 Palliative-CN HPI - Data of Consult Requesting Physician: Jill Gongora Primary Care Provider: Evan Dominguez MD - Consult Narrative History of present illness: Mr. Elizondo is a 73 year old male CC: Jill Gongora - Time Spent with Patient Time: Total time spent is greater than 50% in coordination of care (as documented) at patient's floor/unit and/or counseling patient: Palliative Care-Exam - Constitutional Vitals: Temp Pulse Resp BP Pulse Ox 97.9 F 72 15 149/53 97 10/12/18 10:08 10/12/18 10:08 10/12/18 10:08 10/12/18 10:08 10/12/18 10:08 Internal Medicine - CN: Reslt - Labs CBC & Chem 7: 10/12/18 03:44 10/12/18 05:52 Labs: Short CBC 10/12/18 Range/Units 03:44 WBC 5.3 (4.3-11.1) K/mcL Hgb 10.0 L (12.9-16.9) g/dL Hct 28.6 L (37.5-50.1) % Plt Count 146 (140-400) K/mcL Neutrophils # 4.0 (1.6-8.9) K/mcL BMP 10/11/18 10/11/18 10/12/18 16:32 21:34 03:44 Sodium 122 L 127 L 128 L Potassium 3.7 Chloride 96 L Carbon Dioxide 22 L BUN 13 Creatinine 0.43 L Glucose 123 H Calcium 8.7 10/12/18 05:52 Sodium 122 L Potassium Chloride Carbon Dioxide BUN Creatinine Glucose Calcium - ABG Interpretation ABG results: PT/INR, D-dimer PT 13.3 Seconds (9.4-12.1) H 10/11/18 05:28 - Attending Attestation I performed a history and physical examination of the patient and discussed his management with the resident. I reviewed the residents note and agree with the documented findings and plan of care, adding as follow: This is 73 years old male with metastatic small cell lung cancer, currently on chemotherapy. Patient currently admitted for weakness and SIADH. Imaging showed progression of disease. Patient was seen today by oncology Dr Pabon, and discussed prognosis and possible treatment options. Patient decided to forgo further cancer treatment. Palliative care consult for hospice evaluation. At the time of exam, pt was lying in bed, feeling very weak, but otherwise comfortable. 30 minutes meeting with patient, and daughter at the bedside. Discussed disease process, prognosis and goals of care. Patient is very weak and has a reduced oral intake. Per , he is no longer able to ambulate or even sit on a chair. Patient states his goal is to return home as soon as possible today. Discussed hospice philosophy, and the supportive role at end-of-life. Patient and family agreeable to hospice. Code status was changed to DNRCC. All were very tearful, emotional support provided. Hospice nurse Diana to meet with patient for further explanation of plan of care, referral called to [facility]. Plan: Hospice to set up equipment today patient can be discharged when cleared by primary hospitalist Ordered Ativan 0.5 mg q4 hrs prn for anxiety Hyponatremia: patient is aware that his sodium is low, but he is unwilling to remain admitted for management. He agrees to water restriction and sodium bicarb tablets. Palliative Quality Code Status: 10/10/18 16:30 Resuscitation Status: Active [RES] Routine Comment: Resuscitation Status: Full Code
--- NOTE | 2018-10-12 12:23 | Discharge Summary ---
- NOTES TO OUTPATIENT PROVIDER Notes to Outpatient Provider: Patient going home with hospice. Orders not resulted at time of discharge: Pending orders 10/10/18 16:38 Legionella Antigen [RM] Routine Mycoplasma pneumoniae IgG IgM Routine 10/10/18 16:39 Streptococcal pneumoniae urin antigen [S. Pneumoniae Antigen] [RM] Routine 10/11/18 15:27 Osmolality,Urine [UCHEM] Routine 10/11/18 15:28 Sodium, Urine [UCHEM] Routine 10/13/18 04:00 Basic Metabolic Panel AM 0400 Complete Blood Count [HEME] AM 0400 Magnesium AM 0400 Phosphorous AM 0400 10/14/18 04:00 Basic Metabolic Panel AM 0400 Complete Blood Count [HEME] AM 0400 Magnesium AM 0400 Phosphorous AM 0400 10/15/18 04:00 Basic Metabolic Panel AM 0400 Complete Blood Count [HEME] AM 0400 Magnesium AM 0400 Phosphorous AM 0400 Date of Encounter: 10/12/18 Time of Encounter: 12:17 - Discharge Diagnosis (1) Weakness Priority: Primary Status: Acute (2) Hyponatremia Priority: Secondary Status: Acute (3) 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 Priority: Secondary Status: Acute (4) Right upper lobe pneumonia Priority: Secondary Status: Acute Qualifiers: Pneumonia type: due to unspecified organism Qualified Code(s): J18.1 - Lobar pneumonia, unspecified organism (5) Severe protein-calorie malnutrition Priority: Secondary Status: Acute (6) Decubitus ulcer of sacral region, stage 1 Priority: Secondary Status: Acute (7) Dehydration Priority: Secondary Status: Acute (8) HTN (hypertension) Priority: Secondary Status: Acute Qualifiers: Hypertension type: essential hypertension Qualified Code(s): I10 - Essential (primary) hypertension (9) Low TSH level Priority: Secondary Status: Acute (10) Small cell lung cancer Priority: Secondary Status: Acute (11) CAD (coronary artery disease) Priority: Secondary Status: Chronic Qualifiers: Coronary Disease-Associated Artery/Lesion type: wiyot artery [place] vs. transplanted heart: wiyot heart Associated angina: without angina Qualified Code(s): I25.10 - Atherosclerotic heart disease of wiyot coronary artery without angina pectoris Hospital course: Mr. Elizondo is a 73 year old male with history of lung cancer with mets on chemotherapy, CAD presents as a transfer from [facility] due to weakness. Patient initially came to [facility] at the request of his doctor when he was not able to get out of bed. He has had poor appetite for past several months with nausea and some diarrhea. He is on immunotherapy for lung cancer and treatment has been postponed because of these symptoms. Denies fevers, SOB, CP, palpitations, change in vision. Due to his debility he was mon itored at [place] and treated for dehydration, hyponatremia, and weakness. He was given IV fluids, prior to transfer listed as +3.5 L total of fluid from all sources. 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 Sodium went from 132 on admission and gradually to 124 prior to arrival here. TSH was low and Free T4 was high but likely from immunotherapy, and hyperthyroidism was not significant enough to initiate treatment. He had some imaging done showing liver with expanding mets, mesenteric lymphadenoapthy. A CT of chest showed worsening mets and pneumonia. He was started on Levaquin and blood cultures were obtained. He was transferred here for Oncology evaluation. TSH low and T4 were high and so have been started on labetolol briefly. Nutrition was consulted. Nephrology was consulted for hyponatremia. It briefly improved but returned down to 122. PT/OT recommended placement to ECF. Oncology evaluated patient and recommended Hospice consult. Patient agreed to evaluation and he and his family at bedside have decided he would like to go home with hospice. We have offered prescription for Levaquin and labetolol to fill if desired for comfort measures. - Time Spent with Patient Total time spent providing and/or coordinating discharge services: - Discharge Medications Prescriptions: New MOM Conc [MILK OF MAGNESIA conc] 10 ml PO DAILY PRN #1 bottle PRN Reason: Constipation Labetalol [Trandate] 100 mg PO BID #60 tablet Continued Cholecalciferol (D-3) [Vitamin D] 1,000 unit PO DAILY Lactulose 30 ml PO BID PRN PRN Reason: Fluid Retention Vitamin E Acid Succinate [Vitamin E] 400 units PO DAILY Flaxseed Oil [[place]-3 Flaxseed Oil] 1 cap PO DAILY Folic Acid [FA-8] 0.8 mg PO DAILY Aspirin [Lo-Dose Aspirin EC] 81 mg PO DAILY Garlic 1,000 mg PO DAILY Sodium Bicarbonate 650 mg PO DAILY Losartan [Cozaar] 100 mg PO DAILY tablet Tamsulosin [Flomax] 0.8 mg PO HS capsule hydrALAZINE [HydrALAZINE] 25 mg PO Q8HR tablet amLODIPine [Norvasc] 10 mg PO DAILY tablet Potassium Chloride 20 meq PO BID tab.er.prt Acetaminophen [Tylenol] 650 mg PO Q4HR PRN tablet PRN Reason: Mild Pain Discontinued [place]-3 Fatty Acids [Fish Oil Concentrate] 1,000 mg PO DAILY Home Medications: Aspirin [Lo-Dose Aspirin EC] 81 mg PO DAILY 12/03/17 [History] Flaxseed Oil [[place]-3 Flaxseed Oil] 1 cap PO DAILY 12/03/17 [History] Folic Acid [FA-8] 0.8 mg PO DAILY 12/03/17 [History] Garlic 1,000 mg PO DAILY 12/03/17 [History] Cholecalciferol (D-3) [Vitamin D] 1,000 unit PO DAILY 02/27/18 [History] Sodium Bicarbonate 650 mg PO DAILY 10/06/18 [History] Acetaminophen [Tylenol] 650 mg PO Q4HR PRN tablet 10/10/18 [Rx] Losartan [Cozaar] 100 mg PO DAILY tablet 10/10/18 [Rx] Potassium Chloride 20 meq PO BID tab.er.prt 10/10/18 [Rx] Tamsulosin [Flomax] 0.8 mg PO HS capsule 10/10/18 [Rx] amLODIPine [Norvasc] 10 mg PO DAILY tablet 10/10/18 [Rx] hydrALAZINE [HydrALAZINE] 25 mg PO Q8HR tablet 10/10/18 [Rx] Lactulose 30 ml PO BID PRN 10/11/18 [History] Vitamin E Acid Succinate [Vitamin E] 400 units PO DAILY 10/11/18 [History] Labetalol [Trandate] 100 mg PO BID #60 tablet 10/12/18 [Rx] MOM Conc [MILK OF MAGNESIA conc] 10 ml PO DAILY PRN #1 bottle 10/12/18 [Rx] levoFLOXacin [Levaquin] 750 mg PO DAILY #7 tablet 10/12/18 [Rx] Allergies/Adverse Reactions: Allergy/AdvReac Type Severity Reaction Status Date / Time [id number] Reductase Allergy See Verified 09/14/18 09:27 Inhibitor Comments [Statins] Date of admission: 10/11/18 18:57 Primary care physician: Evan Dominguez MD Consults: 10/10/18 16:35 Consult to Physical Therapy [CONS] Routine Comment: Evaluate, develop and implement POC Reason for Consult: weakness Does patient have active BEDREST order?: No Is patient medically & hemodynamically stable?: Yes 10/10/18 16:36 Consult to Occupational Therapy [CONS] Routine Comment: Evaluate, develop and implement POC Reason for Consult: Weakness Does patient have active BEDREST order?: No Is patient medically & hemodynamically stable?: Yes 10/10/18 16:40 Consult to Oncology [CONS] Routine Consulting Provider: [facility] [place] Reason for Consult: Lung cancer with mets Call Completed: No 10/10/18 16:46 Consult to Nephrology [CONS] Routine Consulting Provider: [facility] Jaimie/DAGO/WERO/CHRISTOPHER Reason for Consult: hyponatremia Call Completed: Yes 10/10/18 16:58 Consult to Nutrition [CONS] Routine Comment: Consulting Provider: NUTRITION Reason for Dietary Consult: PO Supplementation Consult to Wound Care [CONS] Routine Reason for Consult: sacral ulcer Call Completed: No 10/12/18 09:56 Consult to Palliative Care [CONS] Routine Comment: Consulting Provider: Palliative Care Jaimie Reason for Consult: metastatic small cell, worsening fatigue and weakness Time Notified: 09:58 Call Completed: Yes 10/12/18 10:47 Consult to Pastoral Services [CONS] Routine Comment: Discharging clinician: Joel Dos Santos - Constitutional Vitals: Temp Pulse Resp BP Pulse Ox 97.9 F 72 15 149/53 97 10/12/18 10:08 10/12/18 10:08 10/12/18 10:08 10/12/18 10:08 10/12/18 10:08 General appearance: Present: cachectic, A&O X 3, no acute distress Exam: Gen: AAO x3, NAD, underweight Head: NC, AT ENT: MMM, no lymphadenopathy CVS: RRR Lungs: decreased breath sounds bilaterally Abd; soft, nt/nd Ext: no edema, no cyanosis. Skin: warm, dry - Patient Status Disposition: Hospice - Home Condition: Critical Functional capacity at discharge: bed bound Overall status at discharge: patient is not back to baseline - Discharge Instructions Follow Up With: Evan Dominguez MD [Primary Care Provider] - - Diet and Activity Activity: resume usual activities as tolerated Diet: advance to your usual diet
--- NOTE | 2018-10-12 13:04 | Oncology Inp Progress Note ---
Date of Encounter: 10/12/18 Time of Encounter: 10:00 (1) Small cell lung cancer Status: Acute Assessment and plan: Mr. Elizondo has progressive small cell carcinoma of the lung. He has increasing size as well as number of hepatic metastases. His performance status is poor and he is unable to care for himself. We discussed goals of care. We discussed that we could consider carboplatin and irinotecan. As this would be his third line of therapy, I think is response rate would be diminished, likely 1 and 5 best. Therapy may extend life but his quite may life may remain poor. Given his debility, chemotherapy would recommend against at this time. We discussed pursuing hospice measures. We discussed the potential benefits of going home with hospice. After this discussion, the patient has elected not to proceed with therapy as stated to proceed with hospice measures at home. I think this is in his best interest as well. Family is in agreement. I have consult. Care to help with arrangements for hospice. He is encouraged to contact me at any time with concerns or questions. Oncology: Subj Interval history: Mr. Elizondo has not been doing well. He is very fatigued and tired. His unable to ambulate under his own power. Appetite is down and he is losing weight. He is accompanied by his and daughter. They are here discussed goals of care as well as decision making. He denies any headache, blurred or double vision. No chest pain or palpitations. Minimal dyspnea on exertion. - Constitutional General appearance: cooperative, thin - Head Head exam: Present: atraumatic, normal inspection, normocephalic - Eye Eye exam: Present: normal appearance, conjuntiva pink, sclera anicteric - ENT ENT exam: Present: mucous membranes moist, normal oropharynx - Neck Neck exam: Present: full ROM, normal inspection - Respiratory Respiratory exam: Present: CTAB - Cardiovascular Cardiovascular exam: Present: RRR - GI/Abdominal GI/Abdominal exam: Present: normal bowel sounds, soft - Extremities Exam Extremities exam: Present: normal inspection, pedal edema - Back Exam Back exam: Present: normal inspection - Neurological Exam Neurological exam: Present: alert, CN II-XII intact, oriented X3 Oncology: Obj Data - Labs CBC & Chem 7: 10/12/18 03:44 10/12/18 05:52 - Imaging and cardiology CT scan - abdomen Status: image reviewed by me Additional comments: CT OF THE ABDOMEN AND PELVIS WITH CONTRAST; CT OF THE CHEST WITH CONTRAST 10/09/2018 4:53 pm Chest: Mediastinum: No new or enlarging mediastinal lymphadenopathy. Atherosclerotic calcifications within the coronary arteries. No pericardial effusion. Lungs/pleura: New diffuse ground-glass opacity in the right upper lobe. Centrilobular emphysema. Subpleural nodule in the posterior right lower lobe, superior segment measures 1.4 cm in with compared to 1.2 cm previously. This is slightly obscured by motion artifact. Dependent atelectasis. No pleural effusions. Soft Tissues/Bones: Old left rib fractures. No aggressive osseous lesion. Abdomen/Pelvis: Organs: Multiple right and left hepatic masses, new and enlarged since the prior CT scan. The largest is in the peripheral superior right hepatic lobe measuring 3.9 x 2.4 cm, not clearly seen on the prior exam. Inferior right hepatic mass measures 3.3 x 3.6 cm compared to 1.5 x 1.2 cm previously. The spleen is unremarkable. Pancreas is unremarkable. Kidneys perfuse contrast symmetrically without hydronephrosis. Multiple renal cysts. Dense calcification in the right kidney. GI/Bowel: No dilated loops of bowel. Pelvis: Small amount of gas within the urinary bladder. Calcifications within the prostate. Peritoneum/Retroperitoneum: New 1.5 x 1.2 cm nodule in the left mesentery. New aortocaval lymph node measuring 3.5 x 2.1 cm. Small ascites. Bones/Soft Tissues: Internal fixation hardware in the proximal left femur. No new aggressive osseous lesion. Severe compression fracture of L2 is unchanged. CT/CT abd pelvis w iv and oral IMPRESSION: 1. Disease progression since the CT scan 08/06/2018 with new and enlarging liver metastases and new abdominal lymph node metastases. 2. Questionable mild enlargement of a right lower lobe nodule. 3. New diffuse ground-glass opacity in the right upper lobe could be due to pneumonia. 4. Small amount of gas within the urinary bladder could be due to recent instrumentation. Urinary tract infection is a differential consideration. Consult Discharge Plan - Plan Instructions: Hospice Care (GEN) Referrals: Evan Dominguez MD [Primary Care Provider] - Prescriptions: LORazepam [Ativan] 0.5 mg PO Q4HR 3 Days #18 tablet levoFLOXacin [Levaquin] 750 mg PO DAILY #7 tablet MOM Conc [MILK OF MAGNESIA conc] 10 ml PO DAILY PRN #1 bottle PRN Reason: Constipation Labetalol [Trandate] 100 mg PO BID #60 tablet Inpatient Charges Provider: Dr. Charisse Pabon Follow up - Inpatient: [id number]
--- NOTE | 2018-10-12 13:08 | Physician Discharge Referral ---
Home Health/Hosp Referral Info Transfer to: Hospice Provider in Charge Post Discharge: [facility] Technician - Diagnosis (1) Weakness Priority: Primary Status: Acute (2) Hyponatremia Priority: Secondary Status: Acute (3) 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 Priority: Secondary Status: Acute (4) Right upper lobe pneumonia Priority: Secondary Status: Acute (5) Severe protein-calorie malnutrition Priority: Secondary Status: Acute (6) Decubitus ulcer of sacral region, stage 1 Priority: Secondary Status: Acute (7) Dehydration Priority: Secondary Status: Acute (8) HTN (hypertension) Priority: Secondary Status: Acute (9) Low TSH level Priority: Secondary Status: Acute (10) Small cell lung cancer Priority: Secondary Status: Acute (11) CAD (coronary artery disease) Priority: Secondary Status: Chronic - Respiratory Orders Smoking Cessation: Smoking cessation has been advised. For more information, call the [place] Tobacco Quit Line at 1-432-FDWR-NOW. - Transfer Medications Prescriptions: levoFLOXacin [Levaquin] 750 mg PO DAILY #7 tablet MOM Conc [MILK OF MAGNESIA conc] 10 ml PO DAILY PRN #1 bottle PRN Reason: Constipation Labetalol [Trandate] 100 mg PO BID #60 tablet Home Medications: Aspirin [Lo-Dose Aspirin EC] 81 mg PO DAILY 12/03/17 [History] Flaxseed Oil [[place]-3 Flaxseed Oil] 1 cap PO DAILY 12/03/17 [History] Folic Acid [FA-8] 0.8 mg PO DAILY 12/03/17 [History] Garlic 1,000 mg PO DAILY 12/03/17 [History] Cholecalciferol (D-3) [Vitamin D] 1,000 unit PO DAILY 02/27/18 [History] Sodium Bicarbonate 650 mg PO DAILY 10/06/18 [History] Acetaminophen [Tylenol] 650 mg PO Q4HR PRN tablet 10/10/18 [Rx] Losartan [Cozaar] 100 mg PO DAILY tablet 10/10/18 [Rx] Potassium Chloride 20 meq PO BID tab.er.prt 10/10/18 [Rx] Tamsulosin [Flomax] 0.8 mg PO HS capsule 10/10/18 [Rx] amLODIPine [Norvasc] 10 mg PO DAILY tablet 10/10/18 [Rx] hydrALAZINE [HydrALAZINE] 25 mg PO Q8HR tablet 10/10/18 [Rx] Lactulose 30 ml PO BID PRN 10/11/18 [History] Vitamin E Acid Succinate [Vitamin E] 400 units PO DAILY 10/11/18 [History] Labetalol [Trandate] 100 mg PO BID #60 tablet 10/12/18 [Rx] MOM Conc [MILK OF MAGNESIA conc] 10 ml PO DAILY PRN #1 bottle 10/12/18 [Rx] levoFLOXacin [Levaquin] 750 mg PO DAILY #7 tablet 10/12/18 [Rx] Allergies/Adverse Reactions: Allergy/AdvReac Type Severity Reaction Status Date / Time Otgmycg-Mkc-Gxn Reductase Allergy See Verified 09/14/18 09:27 Inhibitor Comments [Statins] Certification: Further, I certify that my clinical findings support that this patient is homebound (i.e. absences from home require considerable and taxing effort and are for medical reasons or jehovah's witness services or infrequently or short duration when for other reasons) because: Homebound Reason: Patient requires assistance of a person or device to safely leave home, Severity of cardiac or pulmonary status limits activity tolerance Attestation: My signature below is to certify that this patient is under my care and that I, or nurse practitioner, or a physician's esol teacher assistant working with me, has a [id number] encounter with this patient.
[2018-10-12] MEDS ORDERED: OXYCODONE Oral CONC 10 MG/0.5 ML ORAL.SYG SL PRN (14:36)
--- NOTE | 2018-10-12 14:58 | Nephrology Progress Note ---
Date of Encounter: 10/12/18 Time of Encounter: 12:00 - Assessment and Plan (1) Hyponatremia Current Visit: No Status: Acute Sodium noted worse at 122 after receiving NS consistent with SIADH Would probably benefit from tolvaptan but given the terminal stage of lung cancer would only prolong briefly his overall poor prognosis Would recommend continued fluid restriction at 1.5 liters a day Would recommend added salt in diet salt tabs 1gram bid Urine osm and sodium never done as ordered Since pt is now enrolling in hospice care, will sign off. Please reconsult prn (2) Hypokalemia Current Visit: No Status: Resolved Corrected at 3.7 (3) Low TSH level Current Visit: No Status: Acute Per primary team. (4) 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 Current Visit: No Status: Acute Per oncology and palliative care teams (5) Severe protein-calorie malnutrition Current Visit: Yes Status: Acute (6) Metabolic acidosis Current Visit: Yes Status: Acute Mild, does not need bicarb tabs anymore Subjective Interval history: Interim events noted, pt seen and examined with and daughter at bedside. Did not mention hospice care but desired to have sodium level improved. Currently at 122. Objective - Vital Signs Vital signs: Vital Signs Temp Pulse Resp BP Pulse Ox 10/12/18 10:08 97.9 F 72 15 149/53 97 10/12/18 06:56 98.6 F 68 16 143/74 97 10/12/18 03:19 97.4 F L 74 13 145/73 95 10/11/18 23:30 98.3 F 74 16 172/76 94 10/11/18 19:45 98.6 F 75 15 138/66 94 10/11/18 16:01 98.6 F 84 16 150/76 93 Intake and Output 10/11/18 10/12/18 10/12/18 23:59 07:59 15:59 Intake Total 0 / 0 2 360 / 882 Balance 0 / 0 360 / 882 Intake: IV Fluids KCl 40 MEQ Xylocaine 2 ML In Dextrose 5% 500 ML @ 130.5 mls/ hr IVPB ONCE ONE Rx#:[id number] Oral 0 / 0 360 / 360 Other: Meal Lunch Percent of Meal Consumed 25% # Voids 1 # Urine Diapers 1 1 1 # Bowel Movement Diapers 0 - General Appearance General appearance: Present: cachectic, chronically ill, frail EENT: Present: ATNC, mucous membranes dry Neck: Present: no JVD, supple Additional Comments: good areation ant bilat Cardiology: Present: no edema, normal S1, normal S2 Gastrointestinal: Present: no tenderness, no guarding Integumentary: Present: warm and dry Neurologic: Present: no focal deficit Musculoskeletal: Present: no deformities Psychiatric: Present: mood/affect appropriate, cooperative - Lab 10/12/18 03:44 10/12/18 05:52 Most recent lab results 10/12/18 03:44 Calcium 8.7 Phosphorus 3.5 Magnesium 1.9 Consult Discharge Plan - Plan Referrals: Evan Dominguez MD [Primary Care Provider] - Prescriptions: LORazepam [Ativan] 0.5 mg PO Q4HR 3 Days #18 tablet levoFLOXacin [Levaquin] 750 mg PO DAILY #7 tablet MOM Conc [MILK OF MAGNESIA conc] 10 ml PO DAILY PRN #1 bottle PRN Reason: Constipation Labetalol [Trandate] 100 mg PO BID #60 tablet
[2018-10-14 10:32] LABS: Mycoplasma pneumoniae IgG 0.24 U/L (<=0.09)
== END 2018-10-12 17:32 | disposition hospice, home (50) | DRG 193 ==
LOC: 3ANU
PROVIDERS: ADMIT Internal Medicine Nephrology; ATTEND Internal Medicine Nephrology